=== PATIENT | male | born 1940 | race Caucasian/White ===

== ENCOUNTER → 2018-07-16 13:03 | Outpatient (CLI) | payer MEDICARE, OTHER, SELFPAY ==
--- NOTE | 2018-07-16 | DI.US.S_ITS ---
PROCEDURE: US ABDOMEN COMPLETE INDICATIONS: Unspecified abdominal pain TECHNIQUE: Real-time scanning was performed of the abdominal and retroperitoneal organs, with image documentation. COMPARISON: [facility], CR, XR CHEST 2VW, 12/25/2016, 9:22. [facility], CT, CT CHEST ABD PELVIS WO CON, 12/14/2015, 13:33. [facility], US, ABDOMEN COMPLETE, 10/12/2009, 12:32. FINDINGS: Liver: Liver is mildly heterogeneous and a subtle isoechoic mass within the posterior right hepatic lobe cannot be excluded which measures up to 5.6 cm. Gallbladder: No gallstones identified. Normal gallbladder wall. No pericholecystic fluid. Negative sonographic Ward sign. Biliary ducts: Intrahepatic bile ducts are non-dilated. Extrahepatic bile duct not well-seen. Pancreas: Not well-seen. Spleen: Spleen is normal in size and homogeneous in echotexture. Kidneys: Kidneys are normal in size and echotexture. Right kidney measures 13.1 cm long; left kidney measures 15.2 cm long. No hydronephrosis or nephrolithiasis. No solid masses. Bilateral renal cysts, largest on the right measuring 4.1 cm and 4.8 cm on the left. Aorta: Visualized aorta is normal in caliber at less than 3 cm. Iliacs: Proximal common iliac arteries are normal in caliber at less than 2.5 cm. IVC: Intrahepatic inferior vena cava is patent. Miscellaneous: No free abdominal fluid. IMPRESSION: Mild heterogeneous appearance of the posterior aspect of the right hepatic lobe and isoechoic mass within this region cannot be excluded. Recommend hepatic protocol CT or MRI for further evaluation. Dictated by: Matt Scott [facility] Interpreted: Sravan Morataya MD on 07/16/2018 at 13:46 Approved by: Sravan Morataya M.D. on 07/16/2018 at 14:23
== END ==
PROVIDERS: Visit Provider Student in an Organized Health Care Education/Training Program
DX: R10.9 Unspecified abdominal pain (principal)
CPT/HCPCS: 76700

== ENCOUNTER 2018-07-17 10:24 | Emergency (ER) | payer MEDICARE, OTHER, SELFPAY ==
[2018-07-17] VITALS (7 sets, daily range): BP systolic 85–110; BP diastolic 57–77; PULSE 70–88; RESP 15–20; TEMP 36.3–36.8; O2SAT 96–99
--- NOTE | 2018-07-17 10:43 | ED_ITS ---
HPI - Abdominal Pain General Chief Complaint: Abdominal Pain Stated Complaint: X14 DAYS WEIGHT LOSS NOT EATING Time Seen by Provider: 07/17/18 10:42 Source: patient and family Mode of arrival: ambulatory Limitations: no limitations History of Present Illness HPI narrative: 78-year-old male with a history of lung cancer currently not undergoing chemotherapy because he states it was ?gone ?here for evaluation of approximately 14 days vague abdominal pain and not wanting to eat. He also states that he has lost approximately 20 lb over the past month. He states that he saw the [facility] at his primary care doctor's office who ordered an ultrasound and told him to drink Ensure. He came in today for further evaluation. Related Data Home Medications Medication Instructions Recorded Confirmed tramadol 50 mg PO Q6HP PRN 11/17/17 11/17/17 Previous Rx's Medication Instructions Recorded acetaminophen 650 mg PO Q4HR PRN #60 tab 11/19/17 levalbuterol tartrate [Xopenex HFA] 2 puff INHALATION Q4-6H PRN #15 11/19/17 gram tramadol [Ultram] 50 mg PO Q6H PRN #10 tab 07/17/18 Allergies Allergy/AdvReac Type Severity Reaction Status Date / Time hydrocodone [From VICODIN] Allergy Severe METABOLIC Verified 11/17/17 15:02 ENCEPHALOPATHY Iodinated Contrast- Oral and Allergy Intermediate Verified 11/17/17 15:02 IV Dye [IODINATED CONTRAST MEDIA - IV DYE] aspirin [ASPIRIN] Allergy Mild HIVES Verified 11/17/17 15:02 oxycodone [OXYCODONE] AdvReac Severe METABOLIC Verified 11/17/17 15:02 ENCEPHALOPATHY, COMBATIVE Review of Systems Constitutional Reports fatigue, Denies fever(s), Denies headache(s) and Reports lethargy ENT Ears, Nose, Mouth, and Throat: Denies headache(s) Cardiovascular Denies chest pain and Denies dyspnea Respiratory Denies cough and Denies dyspnea Gastrointestinal Gastrointestinal: Reports abdominal pain, Reports nausea and Denies vomiting Genitourinary Denies dysuria Musculoskeletal Denies myalgias and Denies arthralgias Integumentary/Breasts Denies rash Neurologic Denies behavioral changes and Denies headache(s) Psychiatric Denies behavioral changes Endocrine Reports fatigue Hematologic/Lymphatic Denies easy bleeding and Denies easy bruising PFSH Medical History Lung cancer (Acute) Social History household members: spouse Smoking Status: Current every day smoker Exam Initial Vital Signs Initial Vital Signs: Vital Signs Temperature 97.4 F L 07/17/18 10:25 Pulse Rate 88 07/17/18 10:25 Respiratory Rate 20 07/17/18 10:25 Blood Pressure 95/62 07/17/18 10:25 Pulse Oximetry 96 07/17/18 10:25 Const General: cooperative, comfortable, well developed, well groomed and No acute distress Orientation: alert, awake and oriented x3 HENMT Head: normal to inspection and normocephalic Resp Effort & Inspection: normal respiratory effort Auscultation: clear to auscultation bilaterally Cardio Rate: regular rate Rhythm: regular rhythm Pulses: radial pulses present GI Inspection: non-distended Palpation: soft, No firm, No guarding, No mass, No rigid and tender (Right- sided abdominal tenderness) Back/Spine/Pelvis Back: No CVA tenderness Skin Lesions: no lesions Rashes: no rashes Neuro General: alert, awake and oriented x3 Extrem General: normal to inspection and capillary refill normal Psych Appearance: grossly normal and well kempt Course Orders Ordered: ED Orders 07/17/18 11:13 Urinalysis and Microscopic Stat 07/17/18 11:14 CT abdomen pelvis wo con Stat 07/17/18 11:40 Complete Blood Count AUTO DIFF Stat Comprehensive Metabolic Panel Stat Lactate (Lactic Acid) Stat Lipase Stat Discontinued Medications Sodium Chloride (Normal Saline 0.9%) 1,000 mls @ 1,000 mls/hr IV BOLUS ONE Stop: 07/17/18 12:11 Last Infusion: 07/17/18 13:20 Dose: 0 mls/hr Admin: 07/17/18 11:50 Dose: 1,000 mls/hr Vital Signs - 8 hr 07/17/18 10:25 07/17/18 11:05 07/17/18 12:06 Temperature 97.4 F L Pulse Rate 88 86 78 Respiratory Rate 20 16 Blood Pressure 95/62 Blood Pressure [Left Arm] 85/57 L 85/57 L Pulse Oximetry 96 96 98 07/17/18 13:11 07/17/18 14:00 07/17/18 14:42 Temperature Pulse Rate 77 87 70 Respiratory Rate 15 16 Blood Pressure Blood Pressure [Left Arm] 110/77 106/70 109/72 Pulse Oximetry 99 97 97 MDM - Abdominal Pain Medical Records Attestation: I reviewed the patient's medical records. Lab Data Attestation: I reviewed the patient's lab results. Result diagrams: 07/17/18 11:40 07/17/18 11:40 Lab Results 07/17/18 07/17/18 07/17/18 Range/Units 11:40 11:40 11:40 WBC 8.2 (4.5-11.0) X10^3/uL RBC 4.80 (4.5-5.9) X10^6/uL Hgb 14.9 (13.5-17.5) g/dL Hct 43.4 (41-53) % MCV 90.4 (80-100) fL MCH 31.0 (26-34) PG MCHC 34.3 (30-36) % RDW 13.1 (11.6-14.8) % Plt Count 318 (150-400) X10^3/uL Neut % (Auto) 82.1 H (50-75) % Lymph % (Auto) 7.1 L (25-40) % [place] % (Auto) 9.9 (3-14) % Eos % (Auto) 0.3 L (2-4) % Baso % (Auto) 0.6 (0-2) % Neut # (Auto) 6700 (7524-1285) /uL Sodium 139 (137-145) mmol/L Potassium 4.7 (3.4-5.1) mmol/L Chloride 102 (98-107) mmol/L Carbon Dioxide 28 (22-32) mmol/L BUN 27 H (9-20) mg/dL Creatinine 1.20 (0.66-1.25) mg/dL Estimated GFR 58.7 L (>60) mL/min BUN/Creatinine Ratio 22.5 H (6-22) Glucose 155 H (80-110) mg/dL Lactate 1.6 (0.7-2.1) mmol/L Calcium 10.1 (8.4-10.2) mg/dL Total Bilirubin 0.5 (0.2-1.3) mg/dL AST 54 (17-59) IU/L ALT 43 (21-72) IU/L Alkaline Phosphatase 127 H (38-126) U/L Total Protein 6.7 (6.3-8.2) g/dL Albumin 3.7 (3.5-5.0) g/dL Globulin 3.0 (1.7-4.1) g/dL Albumin/Globulin Ratio 1.2 (1.0-2.8) Lipase 70 (23-300) U/L Imaging Data CT scan - abdomen: Radiologist's impression: PROCEDURE: CT ABDOMEN PELVIS WO CON INDICATIONS: Right-sided abdominal pain TECHNIQUE: After the administration of oral contrast, 5 mm thick sections acquired from the diaphragms to the symphysis. 5 mm coronal and sagittal reformats were performed. For radiation dose reduction, the following was used: automated exposure control, adjustment of mA and/or kV according to patient size. COMPARISON: None. FINDINGS: Image quality: Excellent. ABDOMEN: Lung bases: Lung bases are clear. Heart size is normal. Solid organs: Liver is normal in size but there is a large masslike lesion within the liver above the right kidney, with this mass measuring up to 10.8 cm AP, 10.2 cm transverse and up to approximately 13.4 cm craniocaudad. This mass is contiguous with the upper margin of the right kidney and a mass extending from the kidney into the liver parenchyma may explain this appearance. Gallbladder appears free of inflammation or definite calculus.. Pancreas is normal in size. Spleen is normal in size. No adrenal nodules. Both kidneys are normal in size, without hydronephrosis or nephrolithiasis. There are several simple appearing water density renal cortical cysts. As noted above a mass projecting cephalad and invading the inferior margin of the right hepatic lobe posteriorly may be present originating from the right kidney. A middle third posterior right renal collecting system calculus appears free of obstruction or adjacent inflammation. Peritoneum and bowel: Bowel loops demonstrate normal wall thickness and caliber. No free fluid or air. Nodes and vessels: No retroperitoneal or mesenteric adenopathy by size criteria. Aorta and inferior vena cava are normal in size. Miscellaneous: No ventral hernias. PELVIS: Genitourinary: Bladder wall thickness is normal. Miscellaneous: No inguinal hernias or adenopathy. Bones: No suspicious bony lesions. No vertebral body compression fractures. IMPRESSION: Large masslike lesion involves the right posterior hepatic segment and may emanate from and originate from the upper cortex of the right kidney. Alternatively, a liver mass invading inferiorly into the upper right kidney The current symptomatology. Distant metastatic disease is not seen. Contrast enhanced CT scanning is recommended if possible. Distant metastatic disease is not found. Scattered renal cortical cysts are present all of which appear simple in character and water in density. Incidental is made of a single punctate calcification within the middle third right renal collecting system, measuring only approximately 3 mm in diameter. Dictated by: Sebas Vogel M.D. on 07/17/2018 at 13:48 MDM Narrative Medical decision making narrative: Had a discussion with the patient and his family regarding the findings of the CT scan. Informed him that I have a high suspicion that there is a cancerous mass around his right liver. This would explain all the symptoms that brought him into the emergency department today. He already has a appointment scheduled with his oncologist the middle of next week. I informed him that this would be appropriate. Also informed him to call his oncologist on Thursday morning to let him know of the new findings. He was given a copy of the CD with the pictures. He was given return precautions. He expressed understanding and agreement with plan. Patient stated that he can take Ultram Discharge Plan Departure Patient Disposition: Home Clinical Impression: Liver mass Activity Restrictions/Additional Instructions: The CT scan today is concerning for a mass around your liver. There was some concern of this noted on the ultrasound report from yesterday. I would recommend that you keep your appointment with your oncologist next week. Return to the emergency department for any new or worsening symptoms Prescriptions: New tramadol [Ultram] 50 mg tablet 50 mg PO Q6H PRN (Reason: pain) Qty: 10 RF: 0 No Action tramadol 50 MG tablet 50 mg PO Q6HP PRN (Reason: Pain) RF: 0 acetaminophen 325 mg Tablet 650 mg PO Q4HR PRN (Reason: As Needed For Fever/Mild Pain) Qty: 60 RF: 0 levalbuterol tartrate [Xopenex HFA] 45 mcg/actuation HFA aerosol inhaler 2 puff INHALATION Q4-6H PRN (Reason: shortness of breath) Qty: 15 RF: 0
--- NOTE | 2018-07-17 11:14 | DI.CT.S_ITS ---
PROCEDURE: CT ABDOMEN PELVIS WO CON INDICATIONS: Right-sided abdominal pain TECHNIQUE: After the administration of oral contrast, 5 mm thick sections acquired from the diaphragms to the symphysis. 5 mm coronal and sagittal reformats were performed. For radiation dose reduction, the following was used: automated exposure control, adjustment of mA and/or kV according to patient size. COMPARISON: None. FINDINGS: Image quality: Excellent. ABDOMEN: Lung bases: Lung bases are clear. Heart size is normal. Solid organs: Liver is normal in size but there is a large masslike lesion within the liver above the right kidney, with this mass measuring up to 10.8 cm AP, 10.2 cm transverse and up to approximately 13.4 cm craniocaudad. This mass is contiguous with the upper margin of the right kidney and a mass extending from the kidney into the liver parenchyma may explain this appearance. Gallbladder appears free of inflammation or definite calculus.. Pancreas is normal in size. Spleen is normal in size. No adrenal nodules. Both kidneys are normal in size, without hydronephrosis or nephrolithiasis. There are several simple appearing water density renal cortical cysts. As noted above a mass projecting cephalad and invading the inferior margin of the right hepatic lobe posteriorly may be present originating from the right kidney. A middle third posterior right renal collecting system calculus appears free of obstruction or adjacent inflammation. Peritoneum and bowel: Bowel loops demonstrate normal wall thickness and caliber. No free fluid or air. Nodes and vessels: No retroperitoneal or mesenteric adenopathy by size criteria. Aorta and inferior vena cava are normal in size. Miscellaneous: No ventral hernias. PELVIS: Genitourinary: Bladder wall thickness is normal. Miscellaneous: No inguinal hernias or adenopathy. Bones: No suspicious bony lesions. No vertebral body compression fractures. IMPRESSION: Large masslike lesion involves the right posterior hepatic segment and may emanate from and originate from the upper cortex of the right kidney. Alternatively, a liver mass invading inferiorly into the upper right kidney The current symptomatology. Distant metastatic disease is not seen. Contrast enhanced CT scanning is recommended if possible. Distant metastatic disease is not found. Scattered renal cortical cysts are present all of which appear simple in character and water in density. Incidental is made of a single punctate calcification within the middle third right renal collecting system, measuring only approximately 3 mm in diameter. Dictated by: Sebas Vogel M.D. on 07/17/2018 at 13:48 Approved by: Sebas Vogel M.D. on 07/17/2018 at 13:52
[2018-07-17] MEDS: SODIUM CHLORIDE 0.9% 1,000 ML 1000 ML IV (11:50)
[2018-07-17 11:52] LABS: Add Manual Diff / Slide Review NO; Basophils Percent Auto 0.6 % (0-2); Eosinophils Percent Auto 0.3 % (2-4); Hematocrit 43.4 % (41-53); Hemoglobin 14.9 g/dL (13.5-17.5); Lymphocytes Percent Auto 7.1 % (25-40); Mean Corpuscular HGB Conc 34.3 % (30-36); Mean Corpuscular Volume 90.4 fL (80-100); Monocytes Percent Auto 9.9 % (3-14); Neutrophils Absolute Auto 6700 /uL (1500-7000); Neutrophils Percent Auto 82.1 % (50-75); Platelet Count 318 X10^3/uL (150-400); Red Cell Distribution Width 13.1 % (11.6-14.8); White Blood Cell Count 8.2 X10^3/uL (4.5-11.0)
[2018-07-17 12:05] LABS: Lactate (Lactic Acid) 1.6 mmol/L (0.7-2.1)
[2018-07-17 12:06] LABS: Alanine Aminotransferase 43 IU/L (21-72); Albumin 3.7 g/dL (3.5-5.0); Albumin Globulin Ratio 1.2 (1.0-2.8); Alkaline Phosphatase 127 U/L (38-126); Aspartate Aminotransferase 54 IU/L (17-59); BUN Creatinine Ratio 22.5 (6-22); Bilirubin Total 0.5 mg/dL (0.2-1.3); Blood Urea Nitrogen 27 mg/dL (9-20); Calcium 10.1 mg/dL (8.4-10.2); Carbon Dioxide 28 mmol/L (22-32); Chloride 102 mmol/L (98-107); Estimated Glomerular Filt Rate 58.7 mL/min (>60); Glucose 155 mg/dL (80-110); HEMOLYSIS < 15 (0-50); Lipase 70 U/L (23-300); Potassium 4.7 mmol/L (3.4-5.1); Sodium 139 mmol/L (137-145); Total Protein 6.7 g/dL (6.3-8.2)
== END 2018-07-17 15:00 | disposition home or self-care (01) ==
PROVIDERS: Emergency Provider Emergency Medicine
DX: R16.0 Hepatomegaly, not elsewhere classified (principal)
CPT/HCPCS: 36415; 36591; 74176; 80053; 83605; 83690; 85025; 96360; 96361; 99283; 99284

== ENCOUNTER 2019-09-27 02:15 | Inpatient (IN) | payer MEDICARE, OTHER, SELFPAY ==
[2019-09-27] VITALS (18 sets, daily range): BP systolic 101–184; BP diastolic 56–120; PULSE 79–101; RESP 12–32; TEMP 28.4–37.4; O2SAT 84–97; BMI 28.2
--- NOTE | 2019-09-27 | DI.ECHO.S_ITS ---
[facility]---------+ [facility] +---------+ : : [address] : : : : [id number] : : : : Phone: [phone] Echocardiogram Report + + :Name: ADALGISA CARTER Study Date: 09/27/2019 Height: 191 in : :[facility] Weight: 69 lb : : Gender: Male BSA: 2.7 m2 : :: 1940 Age: 79 yrs BP: 144/84 mmHg: :Reason For Study: CAD, Pulmonary Edema : :Ordering Physician: Michelle : :Hospitalist Performed By: Kalli Graff : :Referring: DORA SAUNDERS : + + Interpretation Summary Left ventricular size is at the upper limits of normal. Left ventricular systolic function is moderately reduced. Left ventricular ejection fraction is estimated to be 35%. There is mild global hypokinesis with more pronounced hypokinesis along the inferolateral wall. Global longitudinal peak systolic strain average is reduced at -11.2%. There is probable grade I LV diasotlic dysfunction. The right ventricle is normal in size, thickness and function. Right ventricular systolic function is mildly reduced. Pulmonary artery pressures cannot be estimated because of the lack of a measurable TR jet velocity but the IVC suggests a CVP of around 3 mmHg. Both atria are normal in size. There is no significant valvular heart disease. The aortic root is normal size. Procedure: A two-dimensional transthoracic echocardiogram with color flow and Doppler was performed. The study quality was technically adequate. Comparison is made with the echocardiogram of 01/08/2016. The patient was in normal sinus rhythm during the exam. Left Ventricle: Left ventricular size is at the upper limits of normal. Left ventricular wall thickness is at the upper limits of normal. Left ventricular systolic function is moderately reduced. Left ventricular ejection fraction is estimated to be 35%. There is mild global hypokinesis with more pronounced hypokinesis along the inferolateral wall. Global longitudinal peak systolic strain average is reduced at -11.2%. Right Ventricle: The right ventricle is normal in size, thickness and function. Right ventricular systolic function is mildly reduced. Atria: Both atria are normal in size. There is no Doppler evidence for an interatrial shunt. Mitral Valve: The mitral valve is normal in structure and function. There is trace mitral regurgitation. Aortic Valve: The aortic valve is trileaflet. The aortic valve opens well. There is mild aortic valve sclerosis. There is no aortic valve stenosis. No aortic regurgitation is present. Tricuspid Valve: The tricuspid valve is not well visualized, but is grossly normal. There is a trace or physiologic amount of tricuspid regurgitation. Pulmonary artery pressures cannot be estimated because of the lack of a measurable TR jet velocity but the IVC suggests a CVP of around 3 mmHg. Pulmonic Valve: The pulmonic valve is not well visualized. There is mild pulmonic regurgitation. There is no significant valvular heart disease. Great Vessels: The aortic root is normal size. The ascending aorta is at the upper limits of normal in size. The IVC is of normal diameter and collapses greater than 50% with a sniff. This suggests a low right atrial pressure of 3 mm Hg. Pericardium/ Pleura There is no pericardial effusion. There is no pleural effusion. MMode/2D Measurements & Calculations LVIDd: 5.7 cm LVOT diam: 2.4 cm LVIDs: 4.7 cm Ao root diam: 3.1 cm FS: 17.0 % asc Aorta Diam: 3.4 cm EPSS: 1.0 cm IVSd: 1.0 cm LVPWd: 1.1 cm LV hendrickson. diameter/BSA (cm/m^2): 2.1 LV sys. diameter/BSA (cm/m^2): 1.7 LA A2 area: 20.5 cm2 RA long axis: 5.6 cm LA A4 area: 13.9 cm2 RA area: 11.6 cm2 LA length (vol): 3.9 cm RA vol: 20.5 ml LA vol: 61.5 ml RA : 7.5 ml/m2 LA vol index: 22.4 ml/m2 IVC diam: 1.0 cm RVD1 (basal): 3.5 cm TAPSE: 1.7 cm Doppler Measurements & Calculations Ao V2 max: 116.8 cm/sec LVOT Max David: 80.9 cm/sec Ao V2 mean: 76.3 cm/sec LV V1 max P.6 mmHg Ao max P.5 mmHg LV V1 VTI: 13.8 cm Ao mean P.7 mmHg ABDELRAHMAN(I,D): 3.4 cm2 Ao V2 VTI: 18.8 cm ABDELRAHMAN(V,D): 3.2 cm2 sev ratio: 0.74 ABDELRAHMAN indexed to BSA (cm^2/m^2): 1.2 MV E max david: 71.3 cm/sec PA V2 max: 86.7 cm/sec MV A max david: 87.1 cm/sec PA V2 mean: 58.2 cm/sec MV E/A: 0.82 PA mean P.6 mmHg Lat Peak E' David: 5.2 cm/sec PA Accel Time: 0.11 sec E/E' lat: 13.7 SV(LVOT): 64.3 ml Reading Physician:08:43 AM
[2019-09-27] MEDS: ALBUTEROL/IPRATROPIUM 3 ML AMPUL INH ×2 (02:28→02:54)
--- NOTE | 2019-09-27 02:29 | ED.SOB ---
HPI - SOB/Dyspnea General Chief Complaint: Shortness of Breath/Dyspnea Stated Complaint: lung cancer/pneumonia 6 weeks/getting worse Time Seen by Provider: 09/27/19 02:19 Source: patient and family () Limitations: no limitations History of Present Illness HPI Narrative: This is a 79-year-old male comes to the emergency department with complaint of shortness of breath. Patient states that he has known lung cancer as well as a liver mass. He is currently receiving therapy every 3 weeks IV. He has had increasing shortness of breath over the last several weeks but states it is worse tonight than typical. He denies any fevers. He has a cough that has been chronic and is nonproductive. Patient does not use inhalers except for Spiriva. He does smoke tobacco daily. Patient states he has little bit of pressure on his chest. He states he has had pneumonia in the past and this feels similar. He has required home O2 in the past but not regularly only post pneumonia. He denies any abdominal pain. He states he has noticed some blood in his urine. No frequency, dysuria urgency. He states he has had normal bowel movements no black or bloody stools. He is on Plavix, he does not take aspirin and states he has hives with aspirin. He also takes medication for hypertension, dyslipidemia. He denies any prior cardiac arrhythmias. He does have a history of a heart attack remotely states no stents. He used to follow with a [employer] intern but no longer does. Dr. Murray is his oncologist. Related Data Home Medications Medication Instructions Recorded Confirmed tramadol 50 mg PO Q6HP PRN 11/17/17 11/17/17 Previous Rx's Medication Instructions Recorded acetaminophen 650 mg PO Q4HR PRN #60 tab 11/19/17 levalbuterol tartrate [Xopenex HFA] 2 puff INHALATION Q4-6H PRN #15 11/19/17 gram tramadol [Ultram] 50 mg PO Q6H PRN #10 tab 07/17/18 Allergies Allergy/AdvReac Type Severity Reaction Status Date / Time hydrocodone [From VICODIN] Allergy Severe METABOLIC Verified 11/17/17 15:02 ENCEPHALOPATHY Iodinated Contrast Media Allergy Intermediate Verified 11/17/17 15:02 [IODINATED CONTRAST MEDIA - IV DYE] aspirin [ASPIRIN] Allergy Mild HIVES Verified 11/17/17 15:02 oxycodone [OXYCODONE] AdvReac Severe METABOLIC Verified 11/17/17 15:02 ENCEPHALOPATHY, COMBATIVE Review of Systems Review of Systems ROS Unobtainable: All systems reviewed & are unremarkable except as noted in HPI and below Patient History Medical History (Updated 09/27/19 @ 03:53 by Poly Steele DO) Lung cancer (Acute) Social History household members: spouse Smoking Status: Current every day smoker Smoking Status: Current every day smoker alcohol intake frequency: 0-2 drinks per day Substance Use Type: does not use Exam Narrative Exam Narrative: GEN: Elderly male, alert and oriented x 3, patient appears to be in moderate distress. Patient appears ashen. Patient was 84% on room air, comes up over 1-2 minutes to 93-95% on O2. HEENT: Atraumatic, pupils are equal round reactive to light, extraocular movements are intact, nares are clear. Throat is clear without any exudates, erythema, tonsillar enlargement or uvular deviation HEART: Regular rate and rhythm without murmur, clicks, rubs. Pulses are equal in upper and lower extremities. No JVD noted. LUNGS:Lungs has mild expiratory wheeze bilaterally, no rales, crackles, chest moves symmetrically, positive for tachypnea. No accessory muscle use. Patient has a wet sound and cough but has been nonproductive in the department. ABD:bowel sounds normal, soft, non-tender, no guarding, rebound, rigidity, no masses noted, no hepatosplenomegaly :No CVA tenderness MSCL: Non-tender, no muscle atrophy, muscles strength 5/5 upper and lower extremities, full range of motion, normal gait NEURO:CN 2-12 intact, sensation normal Initial Vital Signs Initial Vital Signs: Vital Signs Temperature 97.3 F L 09/27/19 02:29 Pulse Rate 100 H 09/27/19 02:29 Respiratory Rate 32 H 09/27/19 02:29 Blood Pressure 184/120 H 09/27/19 02:29 Pulse Oximetry 84 L 09/27/19 02:29 Scores GCS [place] coma scale eye opening: Spontaneous [place] coma scale verbal response: Orientated [place] coma scale motor response: Obey commands Berry coma scale total score: 15 Course Orders Ordered: ED Orders 09/27/19 EC echo doppler complete Routine Urinalysis and Microscopic Routine 09/27/19 02:30 XR chest 1V Stat 09/27/19 02:35 Basic Metabolic Panel Stat Complete Blood Count AUTO DIFF Stat D Dimer Stat Lactate (Lactic Acid) Stat Magnesium Stat NT-proBNP (BNP-Adult 18+) Stat Partial Thromboplastin Time Stat Procalcitonin Stat Prothrombin Time INR Stat Thyroid Stimulating Hormone Routine Troponin & CK Cardiac Panel Stat 09/27/19 02:47 EKG-12 Lead Stat 09/27/19 02:52 Blood Culture Stat 09/27/19 03:58 Arterial Blood Gas Stat 09/27/19 04:05 Respiratory Panel (Film Array) Stat 09/27/19 04:09 Urine Microscopic Stat 09/27/19 04:59 BiPAP Ventilatory Support RT PROTOCOL 09/27/19 05:02 Education, smoking cessation ONGOING 09/27/19 05:04 Consult to Discharge Planning Routine Consult to Respiratory Therapy Evaluate & Treat 09/27/19 10:00 Basic Metabolic Panel Routine Troponin I Routine Albuterol/Ipratropium (Duoneb) 3 ml INH RTQ4HR PRN PRN Reason: Shortness Of Breath Last Admin: 09/27/19 02:54 Dose: 3 ml Documented by: ANDREA Atorvastatin Calcium (Lipitor) 20 mg PO BEDTIME [facility] Bisacodyl (Dulcolax) 10 mg PO DAILY PRN PRN Reason: Constipation Clopidogrel Bisulfate (Plavix) 75 mg PO DAILY [facility] Docusate Sodium (Colace) 100 mg PO BID PRN PRN Reason: Constipation Heparin Sodium (Porcine) (Heparin) 5,000 unit SUBCUT BID [facility] Isosorbide Mononitrate (Imdur) 60 mg PO DAILY [facility] Losartan Potassium (Cozaar) 50 mg PO DAILY [facility] Methylprednisolone (Solu-Medrol 125 Mg Vial) 40 mg IV Q8H [facility] Metoprolol Tartrate (Lopressor) 50 mg PO BID [facility] Naloxone HCl (Narcan) 0.2 mg IV Q2MIN PRN PRN Reason: Opiate Reversal Ondansetron HCl (Zofran) 4 mg IV Q6HR PRN PRN Reason: Nausea Tamsulosin HCl (Flomax) 0.4 mg PO DAILY [facility] Tiotropium [place] (Spiriva) 18 mcg INH RTDAILY [facility] Discontinued Medications Albuterol/Ipratropium (Duoneb) 3 ml INH NOW ONE Stop: 09/27/19 02:27 Last Admin: 09/27/19 02:28 Dose: 3 ml Documented by: ANDREA Furosemide (Lasix) 40 mg PO NOW ONE Stop: 09/27/19 03:16 Last Admin: 09/27/19 03:22 Dose: Not Given Documented by: SHEMAR Furosemide (Lasix) 40 mg IV NOW ONE Stop: 09/27/19 03:20 Last Admin: 09/27/19 03:22 Dose: 40 mg Documented by: SHEMAR Methylprednisolone (Solu-Medrol 125 Mg Vial) 125 mg IV NOW ONE Stop: 09/27/19 02:30 Last Admin: 09/27/19 03:00 Dose: 125 mg Documented by: SHEMAR Vital Signs Vital signs: Vital Signs - 8 hr 09/27/19 02:29 09/27/19 02:31 09/27/19 02:53 Temperature 97.3 F L Pulse Rate 100 H 101 H 95 H Respiratory Rate 32 H 24 25 H Blood Pressure 184/120 H Blood Pressure [Left Arm] 155/97 H Pulse Oximetry 84 L 95 93 09/27/19 02:55 09/27/19 03:58 09/27/19 04:21 Temperature Pulse Rate 93 H 96 H 95 H Respiratory Rate 28 H 31 H 24 Blood Pressure Blood Pressure [Left Arm] 146/86 H 148/94 H Pulse Oximetry 93 90 L 93 MDM - SOB/Dyspnea Lab Data Attestation: I reviewed the patient's lab results. Result diagrams: 09/27/19 02:35 09/27/19 02:35 Labs: Lab Results 09/27/19 09/27/19 09/27/19 Range/Units 02:35 02:35 02:35 WBC 4.8 (4.5-11.0) X10^3/uL RBC 4.64 (4.5-5.9) X10^6/uL Hgb 15.8 (13.5-17.5) g/dL Hct 46.3 (41-53) % MCV 99.7 (80-100) fL MCH 34.1 H (26-34) PG MCHC 34.2 (30-36) % RDW 16.2 H (11.6-14.8) % Plt Count 103 L (150-400) X10^3/uL Neut % (Auto) 87.7 H (50-75) % Lymph % (Auto) 6.6 L (25-40) % [place] % (Auto) 4.3 (3-14) % Eos % (Auto) 0.5 L (2-4) % Baso % (Auto) 0.9 (0-2) % Neut # (Auto) 4200 (6920-6708) /uL Lymph # (Auto) 300 L (0604-3586) /uL [place] # (Auto) 200 (0-900) /uL Eos # (Auto) 0 (0-450) /uL Baso # (Auto) 0 (0-100) /uL PT 13.1 H (10.1-12.7) SECONDS INR 1.1 (0.9-1.3) APTT 37 H (26.4-36.2) SECONDS D-Dimer (<230) ng/mL ABG pH (7.35-7.45) ABG pCO2 (35-45) mmHg ABG pO2 (80-100) mmHg ABG HCO3 (22-26) mmol/L ABG Total CO2 (21-31) mmol/L ABG O2 Saturation (95-100) % ABG Base Excess (-2-2) mmol/L FiO2 Sodium 142 (137-145) mmol/L Potassium 3.9 (3.4-5.1) mmol/L Chloride 108 H (98-107) mmol/L Carbon Dioxide 30 (22-32) mmol/L BUN 21 H (9-20) mg/dL Creatinine 1.62 H (0.66-1.25) mg/dL Estimated GFR 41.4 L (>60) mL/min BUN/Creatinine Ratio 13.0 (6-22) Glucose 118 H (80-110) mg/dL Lactate (0.7-2.1) mmol/L Calcium 9.5 (8.4-10.2) mg/dL Magnesium 2.0 (1.6-2.3) mg/dL Total Creatine Kinase 517 H (55-170) U/L CK-MB (CK-2) 8.35 H (<2.37) ng/mL CK-MB (CK-2) Rel Index 1.6 (1.5-5.0) % Troponin I < 0.012 (0.01-0.034) ng/mL NT-Pro-B Natriuret Pep 2290 H (<450) pg/mL Procalcitonin (<0.5) ng/mL Urine RBC (0-5/HPF) Urine WBC (0-5/HPF) Ur Squamous Epith Cells (0-5/HPF) Urine Bacteria (None) Ur Culture Indicated? 09/27/19 09/27/19 09/27/19 Range/Units 02:35 02:35 02:35 WBC (4.5-11.0) X10^3/uL RBC (4.5-5.9) X10^6/uL Hgb (13.5-17.5) g/dL Hct (41-53) % MCV (80-100) fL MCH (26-34) PG MCHC (30-36) % RDW (11.6-14.8) % Plt Count (150-400) X10^3/uL Neut % (Auto) (50-75) % Lymph % (Auto) (25-40) % [place] % (Auto) (3-14) % Eos % (Auto) (2-4) % Baso % (Auto) (0-2) % Neut # (Auto) (8422-6643) /uL Lymph # (Auto) (2511-9593) /uL [place] # (Auto) (0-900) /uL Eos # (Auto) (0-450) /uL Baso # (Auto) (0-100) /uL PT (10.1-12.7) SECONDS INR (0.9-1.3) APTT (26.4-36.2) SECONDS D-Dimer < 200 (<230) ng/mL ABG pH (7.35-7.45) ABG pCO2 (35-45) mmHg ABG pO2 (80-100) mmHg ABG HCO3 (22-26) mmol/L ABG Total CO2 (21-31) mmol/L ABG O2 Saturation (95-100) % ABG Base Excess (-2-2) mmol/L FiO2 Sodium (137-145) mmol/L Potassium (3.4-5.1) mmol/L Chloride (98-107) mmol/L Carbon Dioxide (22-32) mmol/L BUN (9-20) mg/dL Creatinine (0.66-1.25) mg/dL Estimated GFR (>60) mL/min BUN/Creatinine Ratio (6-22) Glucose (80-110) mg/dL Lactate 0.9 (0.7-2.1) mmol/L Calcium (8.4-10.2) mg/dL Magnesium (1.6-2.3) mg/dL Total Creatine Kinase (55-170) U/L CK-MB (CK-2) (<2.37) ng/mL CK-MB (CK-2) Rel Index (1.5-5.0) % Troponin I (0.01-0.034) ng/mL NT-Pro-B Natriuret Pep (<450) pg/mL Procalcitonin < 0.05 (<0.5) ng/mL Urine RBC (0-5/HPF) Urine WBC (0-5/HPF) Ur Squamous Epith Cells (0-5/HPF) Urine Bacteria (None) Ur Culture Indicated? 09/27/19 09/27/19 Range/Units 03:58 04:09 WBC (4.5-11.0) X10^3/uL RBC (4.5-5.9) X10^6/uL Hgb (13.5-17.5) g/dL Hct (41-53) % MCV (80-100) fL MCH (26-34) PG MCHC (30-36) % RDW (11.6-14.8) % Plt Count (150-400) X10^3/uL Neut % (Auto) (50-75) % Lymph % (Auto) (25-40) % [place] % (Auto) (3-14) % Eos % (Auto) (2-4) % Baso % (Auto) (0-2) % Neut # (Auto) (8084-1878) /uL Lymph # (Auto) (0814-7906) /uL [place] # (Auto) (0-900) /uL Eos # (Auto) (0-450) /uL Baso # (Auto) (0-100) /uL PT (10.1-12.7) SECONDS INR (0.9-1.3) APTT (26.4-36.2) SECONDS D-Dimer (<230) ng/mL ABG pH 7.40 (7.35-7.45) ABG pCO2 41.5 (35-45) mmHg ABG pO2 57 L (80-100) mmHg ABG HCO3 26 (22-26) mmol/L ABG Total CO2 27 (21-31) mmol/L ABG O2 Saturation 89 L (95-100) % ABG Base Excess 1.0 (-2-2) mmol/L FiO2 40 Sodium (137-145) mmol/L Potassium (3.4-5.1) mmol/L Chloride (98-107) mmol/L Carbon Dioxide (22-32) mmol/L BUN (9-20) mg/dL Creatinine (0.66-1.25) mg/dL Estimated GFR (>60) mL/min BUN/Creatinine Ratio (6-22) Glucose (80-110) mg/dL Lactate (0.7-2.1) mmol/L Calcium (8.4-10.2) mg/dL Magnesium (1.6-2.3) mg/dL Total Creatine Kinase (55-170) U/L CK-MB (CK-2) (<2.37) ng/mL CK-MB (CK-2) Rel Index (1.5-5.0) % Troponin I (0.01-0.034) ng/mL NT-Pro-B Natriuret Pep (<450) pg/mL Procalcitonin (<0.5) ng/mL Urine RBC 30-100/hpf H (0-5/HPF) Urine WBC None seen (0-5/HPF) Ur Squamous Epith Cells 0-1 /hpf (0-5/HPF) Urine Bacteria Few (2-10) H (None) Ur Culture Indicated? Cult not indicated Urine Dip Bedside Urine Glucose Negative Bedside Urine Bilirubin - Negative Bedside Urine Ketone - Negative Urine Specific [place] 1.015 Bedside Urine Occult Blood +++ Bedside Urine pH 6.0 Bedside Urine Protein +/- 15 Bedside Urine Urobilinogen - Negative Bedside Urine Nitrite - Negative Bedside Urine Leukocytes - Negative Esterase ABG Data ABG results: PH is 7.398, pCO2 of 41 with a PaO2 of 57 and a bicarb of 25. Patient is on 5 L nasal cannula, shows hypoxia but no pH imbalance. Imaging Data Chest x-ray: Attestation: I personally reviewed and interpreted this imaging study as follows: My Impression: pna vs pulm edema throughout lungs. Appears significantly worse than prior from 2018. ECG Data Attestation: I personally reviewed and interpreted this ECG as follows: Prior ECG tracings: available for review Interpretation: Sinus rhythm with a rate of 96 P are 202 QRS of 153 and QTC of 447. Left axis deviation, right bundle-branch block. Q-wave in V1 and V2. Patient has prior EKG from 11/18/2017 which is not read out as a right bundle branch block but looks fairly similar. No ST elevation appreciated. No depression noted. MDM Narrative Medical decision making narrative: Recheck after 2 neb treatments and patient wheezing has improved patient's O2 is somewhat improved but dips down into the 80s intermittently. He states he feels much better. His pressure is also improved. He states the pressure in his chest as resolved. He states he deals still have some pain when he coughs. He does not feel as short of breath. He has been afebrile in department. His white count is normal, platelets are low. Patient's creatinine is 1.62 BUN is 21 with a chloride of 108 and otherwise normal electrolytes. Initial troponin is negative CK-MB is elevated with a total CK of 500 and a BNP of 2200. Procalcitonin is negative. Patient chest x-ray appears to be more pulmonary edema than pneumonia. And he has not had a productive cough. Given Lasix in the department. Nitro was held as his blood pressures been improving and he is feeling better. Discussed with nurse practitioner Luiz Mullen, who accepts. Plan to for respiratory panel in addition to ABG and dimer as patient is at risk for PE. Patient has been on the edge and terms of his oxygenation and he is willing to do BiPAP. His ABG shows hypoxia with a PaO2 of 57 on 5 L nasal cannula with no CO2 retention with metabolic acidosis and a pH of 7.398 and patient was started on bipap. Ddimer is negative. Patient respiratory panel is pending, patient was seen by [employer] Luiz Mullen in the department. We did discuss goals of care he is open to intubation or CPR but only for a short period of time. states they have been looking into paperwork and she recently filled out some for her . Discharge Plan Departure Patient Disposition: Admitted As Inpatient Clinical Impression: CHF (congestive heart failure), Acute respiratory distress
--- NOTE | 2019-09-27 02:30 | DI.RAD.S_ITS ---
PROCEDURE: XR CHEST 1V INDICATIONS: shortness of breath, known lung cancer, cough, tobacco abuse TECHNIQUE: One view of the chest was acquired. COMPARISON: [facility], CT, CT CHEST ABDOMEN PELVIS WITHOUT CONTRAST, 07/19/2019, 11:54. [facility], CR, CHEST 1 VIEW, 11/14/2017, 9:09. FINDINGS: Surgical changes and devices: None. Lungs and pleura: There is increased pulmonary vascular prominence consistent with pulmonary edema. There are right perihilar medial opacities redemonstrated consistent with radiation pneumonitis as seen on the prior CT. Elevation of the right hemidiaphragm again noted. No pleural effusions or pneumothorax. Mediastinum: Mediastinal contours appear unchanged. Heart size is normal. Bones and chest wall: No displaced fracture identified. No suspicious bony lesions. Overlying soft tissues appear unremarkable. IMPRESSION: 1. Pulmonary edema which may be due to cardiogenic or noncardiogenic etiologies. 2. Medial right perihilar opacities consistent with radiation pneumonitis redemonstrated. Dictated by: Moris Castillo M.D. on 09/27/2019 at 11:02 Approved by: Moris Castillo M.D. on 09/27/2019 at 11:14
[2019-09-27 02:55] LABS: Add Manual Diff / Slide Review NO; Basophils Absolute Auto 0 /uL (0-100); Basophils Percent Auto 0.9 % (0-2); Eosinophils Absolute Auto 0 /uL (0-450); Eosinophils Percent Auto 0.5 % (2-4); Hematocrit 46.3 % (41-53); Hemoglobin 15.8 g/dL (13.5-17.5); Lymphocytes Absolute Auto 300 /uL (1100-4500); Lymphocytes Percent Auto 6.6 % (25-40); Mean Corpuscular HGB Conc 34.2 % (30-36); Mean Corpuscular Hemoglobin 34.1 PG (26-34); Mean Corpuscular Volume 99.7 fL (80-100); Monocytes Absolute Auto 200 /uL (0-900); Monocytes Percent Auto 4.3 % (3-14); Neutrophils Absolute Auto 4200 /uL (1500-7000); Neutrophils Percent Auto 87.7 % (50-75); Red Blood Cell Count 4.64 X10^6/uL (4.5-5.9); Red Cell Distribution Width 16.2 % (11.6-14.8); White Blood Cell Count 4.8 X10^3/uL (4.5-11.0)
[2019-09-27 02:58] LABS: INR 1.1 (0.9-1.3); Prothrombin Time 13.1 SECONDS (10.1-12.7)
[2019-09-27] MEDS: methylPREDNISolone 125 MG/2 ML VIAL IV (03:00)
[2019-09-27 03:01] LABS: Blood Urea Nitrogen 21 mg/dL (9-20); Calcium 9.5 mg/dL (8.4-10.2); Carbon Dioxide 30 mmol/L (22-32); Chloride 108 mmol/L (98-107); Creatine Kinase 517 U/L (55-170); Estimated Glomerular Filt Rate 41.4 mL/min (>60); Glucose 118 mg/dL (80-110); HEMOLYSIS < 15 (0-50); PTT Partial Thromboplastin Tim 37 SECONDS (26.4-36.2); Potassium 3.9 mmol/L (3.4-5.1); Sodium 142 mmol/L (137-145)
[2019-09-27 03:02] LABS: Lactate (Lactic Acid) 0.9 mmol/L (0.7-2.1); Platelet Count 103 X10^3/uL (150-400)
[2019-09-27 03:13] LABS: NT-proBNP (BNP-Adult 18+) 2290 pg/mL (<450); Troponin I < 0.012 ng/mL (0.01-0.034)
[2019-09-27 03:16] LABS: CKMB % Relative Index 1.6 % (1.5-5.0); Creatine Kinase MB 8.35 ng/mL (<2.37); Procalcitonin < 0.05 ng/mL (<0.5)
[2019-09-27] MEDS: FUROSEMIDE 40 MG/4 ML VIAL IV (03:22)
[2019-09-27 04:17] LABS: D Dimer < 200 ng/mL (<230)
[2019-09-27 04:22] LABS: WBC Urine None Seen (0-5/HPF)
[2019-09-27 04:28] LABS: Bacteria Urine Few (2-10); RBC Urine 30-100/HPF (0-5/HPF); Squamous Epithelial Cell Urine 0-1 /HPF (0-5/HPF)
[2019-09-27 04:29] LABS: Culture Indicated Urine Cult Not Indicated
[2019-09-27 04:47] LABS: Fractionated Inspired Oxygen 40; HCO3 ABG 26 mmol/L (22-26); Oxygen Saturation ABG 89 % (95-100); PCO2 ABG 41.5 mmHg (35-45); PO2 ABG 57 mmHg (80-100); TCO2 ABG 27 mmol/L (21-31)
[2019-09-27 05:22] LABS: Adenovirus Not Detected (Not Detect); Bordetella pertussis Not Detected (Not Detect); Chlamydophila pneumoniae Not Detected (Not Detect); Coronavirus 229E Not Detected (Not Detect); Coronavirus HKU1 Not Detected (Not Detect); Coronavirus NL 63 Not Detected (Not Detect); Coronavirus OC43 Not Detected (Not Detect); Human Metapneumovirus Not Detected (Not Detect); Human Rhinovirus/Enterovirus Not Detected (Not Detect); Influenza A Detected (Not Detect); Influenza B Not Detected (Not Detect); Mycoplasma pneumoniae Not Detected (Not Detect); Parainfluenza Virus 1 Not Detected (Not Detect); Parainfluenza Virus 2 Not Detected (Not Detect); Parainfluenza Virus 3 Not Detected (Not Detect); Parainfluenza Virus 4 Not Detected (Not Detect); Respiratory Syncytial Virus Not Detected (Not Detect)
--- NOTE | 2019-09-27 05:24 | P.HP_ITS ---
History of Present Illness History of Present Illness Date Patient Seen: 09/27/19 Time Patient Seen: 05:05 Chief complaint: lung cancer/pneumonia 6 weeks/getting worse Narrative: Mr. Irvin Jarrett is a 71-year-old male patient with a known history of small cell lung cancer (2012) status post chemotherapy and radiation, liver mass (2017) undergoing chemotherapy, CAD, UT (1992, 2015), current smoker with emphysema, duodenal ulcer (2013), hypertension and hyperlipidemia who presents to the ER with his forshortness of breath. The patient has had a chronic cough related to his lung cancer that has worsened over the last 4-6 weeks. The patient is currently undergoing pembrolizumab (keytruda) every 3 weeks with next dose due tomorrow. He follows with his oncologist Dr. Newton who has ordered 2 courses of antibiotics including azithromycin on 08/16/2019 and amoxicillin clavulanate on 09/06/2019 for presumed pneumonia during chemo treatment. the pat ient states he was beginning to feel somewhat better but became markedly worse tonight stating it feels like the pneumonia he had before. the patient's reports decreased appetite and weight gain. The patient continues to smoke 1/2 pack per day. The patient reports no fevers or chills, headaches or dizziness. His describes having cold symptoms. Denies complaints of chest pain and has shortness of breath and cough as above. Reports no complaints abdominal pain, heartburn or nausea. Reports regularly passing formed stools and has noted blood in his urine but none is appreciated in the urine at bedside. Upon arrival to the ER the patient has a blood pressure of 90 7.3, heart rate of 100, blood pressure 184/120, respirations of 32 saturating 84% on room air. Patient had responded well to oxygen therapy with oxygen saturation up to 94% on nasal cannula. Chest x-ray demonstrates elevated right hemidiaphragm with vascular prominence consistent with pulmonary edema. Twelve lead EKG: Sinus rhythm ventricular rate 96, right bundle branch block, left axis shift, septal infarct, no ST or T-wave changes. On laboratory analysis his white count of 4.8, hemoglobin of 15.8 and hematocrit of 46.3 and platelets of 103. On coagulation he has a PT of 13.1, INR 1.1 and PTT 37. On chemistry C has electrolytes normal limits and has a BUN of 21 and creatinine of 1.62. His nonfasting glucose is 118. His magnesium is 2.0. He has lactic acid is 0.9 and a procalcitonin of less than 0.05. He has an elevated total CK at 517 with CK- MB of 8.35 with an index of 1.6. His troponin is less than 0.012 and his proBNP is elevated at 2290. The patient is admitted to the medicine service with acute hypoxic respiratory failure. Patient History Medical History COPD with exacerbation (Inactive) Coronary artery disease (Inactive) Hyperlipidemia (Acute) Hypertension (Acute) Liver mass (Acute) Myocardial infarction (Acute) Small cell lung cancer (Acute) Smoking addiction (Inactive) Surgical History (Updated 09/27/19 @ 06:07 by DIANA Waddell) History of cataract surgery (Acute) History of tonsillectomy (Acute) Family & Social History Family History (Updated 09/27/19 @ 06:09 by DIANA Waddell) Father Heart attack Diabetes mellitus Mother Stroke Sister ALS (amyotrophic lateral sclerosis) Daughter No significant medical problems Social History: household members spouse Safety & Behavioral: Feels Safe in Current Yes Environment Tobacco & Substance use: Smoking Status Current every day smoker alcohol intake frequency 0-2 drinks per day Substance Use Type does not use Comment: Patient lives in a single family home with his . His father from an [place] had diabetes in his mother had multiple strokes. He has 2 sisters 1 of whom from ALS. He has 2 daughters whom he describes as in good health. Smoking: Chronic smoker previously smoking 2-2 and half packs per day down to 1/2 pack per day. Alcohol: Patient denies consuming alcoholic beverages Substance use: Patient denies recreational pharmaceuticals herbal or cannabis products Advanced directives: In direct conversation with the patient at this time he wishes to be FULL CODE but states his desired not to be on long-term life support. He designates his to be his surrogate decision maker. Meds Home Medications and Allergies Home Medications Medication Instructions Recorded Confirmed Type acetaminophen 650 mg PO Q4HR PRN #60 tab 11/19/17 09/27/19 Rx atorvastatin 20 mg PO BEDTIME 09/27/19 09/27/19 History clopidogrel [Plavix] 75 mg PO DAILY 09/27/19 09/27/19 History isosorbide mononitrate 60 mg PO DAILY 09/27/19 09/27/19 History losartan 50 mg PO DAILY 09/27/19 09/27/19 History metoprolol tartrate 50 mg PO BID 09/27/19 09/27/19 History tamsulosin 0.4 mg PO DAILY 09/27/19 09/27/19 History tiotropium bromide [Spiriva with 1 cap INHALATION DAILY 09/27/19 09/27/19 History HandiHaler] Allergies Allergy/AdvReac Type Severity Reaction Status Date / Time hydrocodone [From VICODIN] Allergy Severe METABOLIC Verified 11/17/17 15:02 ENCEPHALOPATHY Iodinated Contrast Media Allergy Intermediate Verified 11/17/17 15:02 [IODINATED CONTRAST MEDIA - IV DYE] aspirin [ASPIRIN] Allergy Mild HIVES Verified 11/17/17 15:02 oxycodone [OXYCODONE] AdvReac Severe METABOLIC Verified 11/17/17 15:02 ENCEPHALOPATHY, COMBATIVE Review of Systems Review of Systems ROS: Yes All systems reviewed with the patient and are negative except as otherwise documented Exam Vital Signs (past 8 hours): - 09/27/19 02:29 09/27/19 02:31 09/27/19 02:53 Temperature 97.3 F L Pulse Rate 100 H 101 H 95 H Respiratory Rate 32 H 24 25 H Blood Pressure 184/120 H Blood Pressure [Left Arm] 155/97 H Pulse Oximetry 84 L 95 93 09/27/19 02:55 09/27/19 03:58 09/27/19 04:21 Temperature Pulse Rate 93 H 96 H 95 H Respiratory Rate 28 H 31 H 24 Blood Pressure Blood Pressure [Left Arm] 146/86 H 148/94 H Pulse Oximetry 93 90 L 93 Oxygen Delivery Method BiPAP Oxygen Flow Rate 5 Narrative Exam Narrative: GENERAL APPEARANCE: well developed, frail appearing, malnourished, laying in bed with head of bed elevated breathing on BiPAP. HEENT: Normocephalic, PERRLA, conjunctiva clear, EOMs intact without nystagmus, no rhinorrhea, mucous membranes are pink NECK/THYROID: neck supple, JVD present, no carotid bruit, no thyromegaly, trachea midline. LYMPH NODES: no cervical or supraclavicular lymphadenopathy. SKIN: [place], warm and dry, no visible lesions, rashes. HEART: regular rate and rhythm, S1-S2, no murmur appreciated, no rubs or gallops, brisk capillary refill, no edema LUNGS: Central coarseness, bibasilar crackles without wheezing, breathing 22-24 breaths minute on BiPAP. CHEST: Symmetrical movement, no accessory muscle use. ABDOMEN: Soft, no distention, no abdominal tenderness, no guarding or peritoneal signs, no organomegaly, no flank or suprapubic tenderness, active bowel tones. BACK: Normal curvature, nontender to palpation, no CVA tenderness on percussion EXTREMITIES: moves all extremities, strength is 5/5 and symmetrical, poor muscle mass NEUROLOGIC: AAO x3, no focal neurologic deficits, sensation intact to light touch, impaired hearing PSYCH: Cooperative, appropriate with stable behavior Objective Labs Result Diagrams: 09/27/19 02:35 09/27/19 02:35 Labs: Laboratory Results - last 24 hr 09/27/19 09/27/19 03 02:35 02:35 02:35 WBC 4.8 RBC 4.64 Hgb 15.8 Hct 46.3 MCV 99.7 MCH 34.1 H MCHC 34.2 RDW 16.2 H Plt Count 103 L Neut % (Auto) 87.7 H Lymph % (Auto) 6.6 L [place] % (Auto) 4.3 Eos % (Auto) 0.5 L Baso % (Auto) 0.9 Neut # (Auto) 4200 Lymph # (Auto) 300 L [place] # (Auto) 200 Eos # (Auto) 0 Baso # (Auto) 0 PT 13.1 H INR 1.1 APTT 37 H D-Dimer ABG pH ABG pCO2 ABG pO2 ABG HCO3 ABG Total CO2 ABG O2 Saturation ABG Base Excess FiO2 Sodium 142 Potassium 3.9 Chloride 108 H Carbon Dioxide 30 BUN 21 H Creatinine 1.62 H Estimated GFR 41.4 L BUN/Creatinine Ratio 13.0 Glucose 118 H Lactate Calcium 9.5 Magnesium 2.0 Total Creatine Kinase 517 H CK-MB (CK-2) 8.35 H CK-MB (CK-2) Rel Index 1.6 Troponin I < 0.012 NT-Pro-B Natriuret Pep 2290 H Procalcitonin Urine RBC Urine WBC Ur Squamous Epith Cells Urine Bacteria Ur Culture Indicated? Chlamy pneumoniae PCR Adenovirus (PCR) B.parapertussis DNA PCR Coronavirus OC43 (PCR) Coronavirus HKU1 (PCR) Coronavirus 229E (PCR) Coronavirus NL63 (PCR) Human Metapneumovir PCR Influenza Type A (PCR) Influenza Type B (PCR) M. pneumoniae (PCR) Parainfluenza 1 (PCR) Parainfluenza 2 (PCR) Parainfluenza 3 (PCR) Parainfluenza 4 (PCR) RSV (PCR) Entero/Rhino (PCR) 09/27/19 09/27/19 09/27/19 02:35 02:35 02:35 WBC RBC Hgb Hct MCV MCH MCHC RDW Plt Count Neut % (Auto) Lymph % (Auto) Tama % (Auto) Eos % (Auto) Baso % (Auto) Neut # (Auto) Lymph # (Auto) [place]ama # (Auto) Eos # (Auto) Baso # (Auto) PT INR APTT D-Dimer < 200 ABG pH ABG pCO2 ABG pO2 ABG HCO3 ABG Total CO2 ABG O2 Saturation ABG Base Excess FiO2 Sodium Potassium Chloride Carbon Dioxide BUN Creatinine Estimated GFR BUN/Creatinine Ratio Glucose Lactate 0.9 Calcium Magnesium Total Creatine Kinase CK-MB (CK-2) CK-MB (CK-2) Rel Index Troponin I NT-Pro-B Natriuret Pep Procalcitonin < 0.05 Urine RBC Urine WBC Ur Squamous Epith Cells Urine Bacteria Ur Culture Indicated? Chlamy pneumoniae PCR Adenovirus (PCR) B.parapertussis DNA PCR Coronavirus OC43 (PCR) Coronavirus HKU1 (PCR) Coronavirus 229E (PCR) Coronavirus NL63 (PCR) Human Metapneumovir PCR Influenza Type A (PCR) Influenza Type B (PCR) M. pneumoniae (PCR) Parainfluenza 1 (PCR) Parainfluenza 2 (PCR) Parainfluenza 3 (PCR) Parainfluenza 4 (PCR) RSV (PCR) Entero/Rhino (PCR) 09/27/19 09/27/19 09/27/19 03:58 04:05 04:09 WBC RBC Hgb Hct MCV MCH MCHC RDW Plt Count Neut % (Auto) Lymph % (Auto) [place] % (Auto) Eos % (Auto) Baso % (Auto) Neut # (Auto) Lymph # (Auto) [place] # (Auto) Eos # (Auto) Baso # (Auto) PT INR APTT D-Dimer ABG pH 7.40 ABG pCO2 41.5 ABG pO2 57 L ABG HCO3 26 ABG Total CO2 27 ABG O2 Saturation 89 L ABG Base Excess 1.0 FiO2 40 Sodium Potassium Chloride Carbon Dioxide BUN Creatinine Estimated GFR BUN/Creatinine Ratio Glucose Lactate Calcium Magnesium Total Creatine Kinase CK-MB (CK-2) CK-MB (CK-2) Rel Index Troponin I NT-Pro-B Natriuret Pep Procalcitonin Urine RBC 30-100/hpf H Urine WBC None seen Ur Squamous Epith Cells 0-1 /hpf Urine Bacteria Few (2-10) H Ur Culture Indicated? Cult not indicated Chlamy pneumoniae PCR Not detected Adenovirus (PCR) Not detected B.parapertussis DNA PCR Not detected Coronavirus OC43 (PCR) Not detected Coronavirus HKU1 (PCR) Not detected Coronavirus 229E (PCR) Not detected Coronavirus NL63 (PCR) Not detected Human Metapneumovir PCR Not detected Influenza Type A (PCR) Detected H Influenza Type B (PCR) Not detected M. pneumoniae (PCR) Not detected Parainfluenza 1 (PCR) Not detected Parainfluenza 2 (PCR) Not detected Parainfluenza 3 (PCR) Not detected Parainfluenza 4 (PCR) Not detected RSV (PCR) Not detected Entero/Rhino (PCR) Not detected Assessment & Plan Assessment & Plan narrative: 1. Acute respiratory failure with hypoxia, meets sepsis criteria, present on admission, active -sofa score is 4 -Patient presents acutely hypoxic upon arrival to the ER with respiratory rate of 34 and SpO2 of 84%. Patient digitally his low platelets of 103 however he is undergoing -chemotherapy. He has elevated creatinine at 1.62, last evaluation record 2018 was 1.2. -Chest x-ray presents parents pulmonary edema, ABG reveals a pH of 7.40, pCO2 41.5, PO2 of 57, bicarb 26 with a base excess of 1. D-dimer is 200. -Patient with multiple contributing etiology including emphysema, lung cancer, and pulmonary edema. Treatment for each is discussed below. -Ordered respiratory PCR panel. 2. Pulmonary edema, new onset without history of heart failure, present on admi ssion, active. -patient has history of coronary artery disease and myocardial infarction in 1992 and 2016. -Patient with progressive shortness of breath for the last month worsening tonight. History and dry nonproductive cough. -Chest x-ray consistent with pulmonary edema, elevated BNP at 2290, troponin is negative at less than 0.012. -Patient received 40 mg of Lasix in the emergency department with subjective improvement in ventilation. -Respiratory to consult and patient started on BiPAP per protocol. -Recheck renal function and reassess the patient prior to continuing Lasix therapy due to chronic kidney disease. -continue patient's home regimen of isosorbide 60 mg daily. -Ordered echocardiogram. 3. Chronic obstructive pulmonary disease, emphysema, present on admission, active -Patient is a chronic smoker smoking 2 to 2-1/2 packs per day continuing to smoke 1/2 pack per day. -In the ER the patient received albuterol and DuoNeb breathing treatments with modest improvement in respiration. -Patient also received methylprednisolone 125 mg IV, ordered methylprednisolone 40 mg every 8 hours. -Respiratory therapy to consult evaluate and treat. -Ordered albuterol treatment every 2 hours as needed. -Ordered DuoNebs every 6 hours as needed. 4. Chronic kidney disease stage 3, possible acute kidney injury on chronic renal disease, present on admission, active -The patient has a creatinine of 1.62 on admission labs. Last available creatinine was 1.2 in June of 2018. Creatinine clearance is calculated at 46.03. - received Lasix 40 mg IV in the emergency department with moderate diuresis. -Will recheck renal function and the necessity for further diuresis prior to ordering additional Lasix. -Will renal dose medications and avoid renal toxic agents.. -Will follow renal function closely. 5. Essential hypertension, chronic, present on admission, active -Patient with elevated blood pressure 184/120 on admission improving to 132/87 following Lasix therapy. -Continue patient's home regimen losartan 50 mg daily and metoprolol tartrate 50 mg twice daily 6. Small cell carcinoma, in remission, stable. -The patient underwent chemotherapy and radiation therapy for small cell carcinoma diagnosed in 2012. -Patient has since developed a liver mass and is undergoing chemotherapy every 3 weeks under the care of Dr. Murray. -Patient's blood counts are stable however white count is 4.8 and likely immunosuppressed. -Patient has received 2 courses of antibiotics including azithromycin started on 08/16/2019 and amoxicillin clavulanate on 09/06/2019 for presumptive pneumonia. -Will obtain respiratory panel. 7. Dyslipidemia, chronic, presumed stable -continue patient's home regimen of atorvastatin 20 mg daily at bedtime VTE prophylaxis: SCDs, heparin. IV fluid: Saline lock Diet: Heart healthy, with ensure The patient is admitted to the hospital due to the severity of his illness and acute respiratory failure with hypoxemia requiring ventilatory support and medication management. Patient is admitted to the ICU on BiPAP. Patient is admitted as an inpatient with expected length of stay to be greater than 2 midnights. CRITICAL CARE TIME: 50 MINUTES Scores [facility] [place] coma scale eye opening: Spontaneous [place] coma scale verbal response: Orientated [place] coma scale motor response: Obey commands [place] coma scale total score: 15 SOFA PaO2/FIO2: < 300 mmHg Platelets: < 150 Bilirubin: < 1.2 mg/dL Hypotension: MAP >= 70 mmHg [place] Coma Scale: 15 Renal: Creatinine 1.2-1.9 mg/dL SOFA Score: 4
--- NOTE | 2019-09-27 06:35 | PC.ADMIT ---
[id number] Admission Note: The patient,Irvin Jarrett,79 y/o, was given written information regarding hospital policies, unit procedures and contact persons. Patient's smoking status: Current every day smoker. Vital Signs - 8 hr 09/27/19 02:29 09/27/19 02:31 09/27/19 02:53 Temperature 97.3 F L Pulse Rate 100 H 101 H 95 H Respiratory Rate 32 H 24 25 H Blood Pressure 184/120 H Blood Pressure [Left Arm] 155/97 H Pulse Oximetry 84 L 95 93 09/27/19 02:55 09/27/19 03:58 09/27/19 04:15 Temperature Pulse Rate 93 H 96 H Respiratory Rate 28 H 31 H Blood Pressure 148/94 H Blood Pressure [Left Arm] 146/86 H Pulse Oximetry 93 90 L 09/27/19 04:21 09/27/19 05:37 09/27/19 06:00 Temperature 98.3 F Pulse Rate 95 H 95 H 92 H Respiratory Rate 24 20 Blood Pressure 132/87 135/83 Blood Pressure [Left Arm] 148/94 H Pulse Oximetry 93 89 L Patient admitted to room 227 at 0535. A/O x4. He is [place], does not have hearing aids with him, most of Admit Assessment answered by , she will bring his aids when she returns. On 5L NC with SpO2 89-92% until RT set up Bi-pap 50% FIO2, 04/24, rate 12, then sats went up to 97%, has mild shortness of breath with exertion, lung sounds rhonchi/wheeze throughout, denies pain. SR, BBB. Placed in Droplet Precautions for influenza A+
[2019-09-27 06:45] LABS: Alanine Aminotransferase 130 IU/L (<50); Albumin 4.4 g/dL (3.5-5.0); Albumin Globulin Ratio 1.5 (1.0-2.8); Alkaline Phosphatase 81 U/L (38-126); Aspartate Aminotransferase 103 IU/L (17-59); Bilirubin Total 0.9 mg/dL (0.2-1.3); Bilirubin Unconjugated 0.7 mg/dL (0.0-1.1); Globulin 2.9 g/dL (1.7-4.1); HEMOLYSIS < 15 (0-50); Total Protein 7.3 g/dL (6.3-8.2)
[2019-09-27] MEDS: TAMSULOSIN 0.4 MG CAPSULE PO (09:10)
[2019-09-27] MEDS: TIOTROPIUM BROMIDE 18 MCG INHALER INH (09:10)
[2019-09-27] MEDS: ISOSORBIDE MONONITRATE ER 60 MG PO (09:10)
[2019-09-27] MEDS: HEPARIN 5,000 UNIT/ML VIAL 5000 UNIT SUBCUT ×2 (09:10→21:31)
[2019-09-27] MEDS: LOSARTAN 50 MG TABLET PO (09:10)
[2019-09-27] MEDS: CLOPIDOGREL 75 MG TABLET PO (09:10)
[2019-09-27] MEDS: METOPROLOL IR 50 MG TABLET PO ×2 (09:10→21:31)
[2019-09-27] MEDS: OSELTAMIVIR 30 MG CAPSULE PO ×2 (09:10→21:31)
[2019-09-27] MEDS: SODIUM CHLORIDE 0.9% FLUSH 10 ML IV ×2 (09:11→23:44)
--- NOTE | 2019-09-27 12:02 | CM.DANOTE ---
DCP: Case received, EMR reviewed and met with patient. Introduced self and role. Was able to briefly meet with patient to obtain some baseline information regarding baseline activity and living situation. DCP assessment completed with information currently available. Patient is a 79 year old male who admitted early this morning to the care of the hospitalist team. Payer: confirmed: Medicare/[facility]. Patient came to the hospital secondary to increased shortness of breath. Patient sees oncologist, Dr. Murray, and has chemo approximately every 3 weeks, for he has diagnosis of lung cancer. Met with patient in his room. He is alert and oriented, confirmed that patient does not have home oxygen, but did so in the past. He also is an every day smoker, and is still driving. He stated that he does not use any DME supplies. Patient resides here in [place] with his spouse, Dante. Patient holds current diagnosis of pneumonia, and influenza A. P: DCP to continue to follow closely. Patient has declined home health in the past, but may be an option. Anticipate, according to Dr. Kirk, that patient will be here for a few days, until he is deemed medically stable. Kirsty Moreland, RISA/[place] Machine Operator Helper
[2019-09-27 12:15] LABS: BUN Creatinine Ratio 12.3 (6-22); Blood Urea Nitrogen 20 mg/dL (9-20); Calcium 9.3 mg/dL (8.4-10.2); Carbon Dioxide 26 mmol/L (22-32); Chloride 104 mmol/L (98-107); Estimated Glomerular Filt Rate 41.1 mL/min (>60); Glucose 270 mg/dL (80-110); HEMOLYSIS < 15 (0-50); Potassium 3.9 mmol/L (3.4-5.1); Sodium 140 mmol/L (137-145)
[2019-09-27 12:26] LABS: Troponin I 0.012 ng/mL (0.01-0.034)
--- NOTE | 2019-09-27 17:39 | PM.EVENT ---
Event Note Date Patient Seen: 09/27/19 Event Note: Patient seen and examined. He remains short of breath foot reports feeling significantly improved. Echocardiogram shows an EF of 30-35%. Patient likely has underlying COPD in addition to pneumonia as well as his lung cancer. Will continue Lasix, start low-dose DEEPAK-inhibitor, and follow-up tomorrow
[2019-09-27] MEDS: ACETAMINOPHEN 325 MG TABLET 650 MG PO (18:22)
[2019-09-27] MEDS: ATORVASTATIN 20 MG TABLET PO (21:31)
--- NOTE | 2019-09-27 23:23 | PC.NURSE ---
Patient only voided 100 for shift. Bladder scan of 200ml postvoid. Luiz, DISABILITY LIAISON OFFICER aware, no new orders. Patient is doing well on 4L O2 NC. Only complaints during shift were of a mild headache which was relieved by Tylenol. Bed alarm on, call light within reach.
[2019-09-28] VITALS (15 sets, daily range): BP systolic 97–117; BP diastolic 63–74; PULSE 67–87; RESP 12–27; TEMP 36.3–37.2; O2SAT 86–97
--- NOTE | 2019-09-28 03:33 | RT ---
0310 pt spo2 suddenly down to 87% on 5lpm nc. pt placed back on bipap with current settings from last night. spo2 up to 92% after about 5 minutes.
--- NOTE | 2019-09-28 05:26 | PC.NURSE ---
On initial assessment patient on 5LNC with Sp02 94% in NAD. 0100 Sp02 87%, oxygen titrated up to 7LNC. Increase of Sp02 up to 93%. 0310 sudden desaturations down to 86% with some circumoral cyanosis noted. RT at bedside, placed back on Bipap with 50% Fi02, 04/24, rate 12. Patient tolerating well with increase of Sp02 to 94% at 5 minutes. Voided 250 mL concentrated urine via urinal.
[2019-09-28 05:40] LABS: Add Manual Diff / Slide Review NO; Basophils Absolute Auto 0 /uL (0-100); Basophils Percent Auto 0.2 % (0-2); Eosinophils Absolute Auto 0 /uL (0-450); Hematocrit 43.1 % (41-53); Hemoglobin 14.8 g/dL (13.5-17.5); Lymphocytes Absolute Auto 400 /uL (1100-4500); Lymphocytes Percent Auto 4.2 % (25-40); Mean Corpuscular HGB Conc 34.3 % (30-36); Mean Corpuscular Hemoglobin 34.7 PG (26-34); Mean Corpuscular Volume 101.1 fL (80-100); Monocytes Absolute Auto 400 /uL (0-900); Monocytes Percent Auto 5.2 % (3-14); Neutrophils Absolute Auto 7800 /uL (1500-7000); Neutrophils Percent Auto 90.4 % (50-75); Platelet Count 99 X10^3/uL (150-400); Red Blood Cell Count 4.27 X10^6/uL (4.5-5.9); Red Cell Distribution Width 16.1 % (11.6-14.8); White Blood Cell Count 8.6 X10^3/uL (4.5-11.0)
[2019-09-28 05:49] LABS: BUN Creatinine Ratio 16.9 (6-22); Blood Urea Nitrogen 32 mg/dL (9-20); Calcium 9.4 mg/dL (8.4-10.2); Carbon Dioxide 28 mmol/L (22-32); Chloride 105 mmol/L (98-107); Estimated Glomerular Filt Rate 34.7 mL/min (>60); Glucose 118 mg/dL (80-110); HEMOLYSIS < 15 (0-50); Potassium 4.5 mmol/L (3.4-5.1); Sodium 140 mmol/L (137-145)
[2019-09-28] MEDS: TIOTROPIUM BROMIDE 18 MCG INHALER INH (09:45)
[2019-09-28] MEDS: HEPARIN 5,000 UNIT/ML VIAL 5000 UNIT SUBCUT ×2 (09:57→20:59)
[2019-09-28] MEDS: FUROSEMIDE 40 MG/4 ML VIAL IV (09:57)
[2019-09-28] MEDS: CLOPIDOGREL 75 MG TABLET PO (10:05)
[2019-09-28] MEDS: LOSARTAN 50 MG TABLET PO (10:05)
[2019-09-28] MEDS: METOPROLOL IR 50 MG TABLET PO ×2 (10:05→20:59)
[2019-09-28] MEDS: TAMSULOSIN 0.4 MG CAPSULE PO (10:05)
[2019-09-28] MEDS: SODIUM CHLORIDE 0.9% FLUSH 10 ML IV ×2 (10:06→21:15)
--- NOTE | 2019-09-28 10:52 | PC.NURSE ---
Am shift Pt trialed on HFNC for meal, O2 @ 6L, tolerated for about 25 minutes. Pt noted to be desatting into mid 80's, work of breathing increased, discussed replacing Bipap, Pt refused but was agreeable after education provided about POC and oxygen needs. Requested medication to help tolerate breathing. Dr Kirk notified, and will be at bedside shortly to discuss POC with Pt.
[2019-09-28] MEDS: OSELTAMIVIR 30 MG CAPSULE PO ×2 (10:58→21:15)
[2019-09-28] MEDS: PIPERACILLIN-TAZO 3.375 GM/50 ML FROZ.PIGGY IV ×2 (13:02→20:59)
[2019-09-28 14:41] LABS: Procalcitonin < 0.05 ng/mL (<0.5)
--- NOTE | 2019-09-28 14:56 | P.PN_ITS ---
Subjective Subjective Date Patient Seen: 09/28/19 Interval history: Patient is a 79-year-old male who was admitted to the hospital for acute respiratory failure. Patient has underlying lung cancer, COPD, and pneumonia. He had an elevated proBNP of 22 90 and an echo which confirmed an ejection fraction of 30-35%. Patient received 1 dose of Lasix and had a small bump in his creatinine. He remained short of breath and hypoxic. He is been placed back on BiPAP for ongoing hypoxemia. Exam Vital Signs (past 8 hours): - 09/28/19 08:00 09/28/19 09:46 09/28/19 12:00 Temperature 97.7 F Pulse Rate 82 84 87 Respiratory Rate 12 19 15 Blood Pressure 98/63 103/65 Pulse Oximetry 95 88 L 92 09/28/19 14:38 Temperature Pulse Rate Respiratory Rate Blood Pressure Pulse Oximetry 92 Fraction of Inspired Oxygen 0.50 Oxygen Delivery Method High Flow Nasal Cannula,BiPAP Oxygen Flow Rate 7 Narrative Exam Narrative: Decreased breath sounds with scattered rhonchi bilaterally Cardiac exam: Regular rate and rhythm normal S1-S2 Abdomen: Soft nontender nondistended Extremities: No edema Objective Labs Result Diagrams: 09/28/19 05:12 09/28/19 05:12 Labs: Laboratory Results - last 24 hr 09/28/19 09/28/19 09/28/19 05:12 05:12 05:12 WBC 8.6 D RBC 4.27 L Hgb 14.8 Hct 43.1 MCV 101.1 H MCH 34.7 H MCHC 34.3 RDW 16.1 H Plt Count 99 L Neut % (Auto) 90.4 H Lymph % (Auto) 4.2 L [place] % (Auto) 5.2 Eos % (Auto) 0.0 L Baso % (Auto) 0.2 Neut # (Auto) 7800 H Lymph # (Auto) 400 L [place] # (Auto) 400 Eos # (Auto) 0 Baso # (Auto) 0 Sodium 140 Potassium 4.5 Chloride 105 Carbon Dioxide 28 BUN 32 H Creatinine 1.89 H Estimated GFR 34.7 L BUN/Creatinine Ratio 16.9 Glucose 118 H D Calcium 9.4 Procalcitonin < 0.05 Assessment & Plan Assessment & Plan narrative: Acute respiratory failure with hypoxia, meets sepsis criteria, present on admission, active -sofa score is 4 -Patient presents acutely hypoxic upon arrival to the ER with respiratory rate of 34 and SpO2 of 84%. Patient digitally his low platelets of 103 however he is undergoing -chemotherapy. He has elevated creatinine at 1.62, last evaluation record 2018 was 1.2. -Chest x-ray presents parents pulmonary edema, ABG reveals a pH of 7.40, pCO2 41.5, PO2 of 57, bicarb 26 with a base excess of 1. D-dimer is 200. -Patient with multiple contributing etiology including emphysema, lung cancer, and pulmonary edema. Treatment for each is discussed below. -patient is influenza positive -patient started on Tamiflu for influenza a -he remains hypoxic and is currently on BiPAP 2. Pulmonary edema, new onset without history of heart failure, present on admission, active. -patient has history of coronary artery disease and myocardial infarction in 1992 and 2015. -Patient with progressive shortness of breath for the last month worsening t onight. History and dry nonproductive cough. -Chest x-ray consistent with pulmonary edema, elevated BNP at 2290, troponin is negative at less than 0.012. -Patient received 40 mg of Lasix in the emergency department with subjective improvement in ventilation. -Respiratory to consult and patient started on BiPAP per protocol. -Recheck renal function and reassess the patient prior to continuing Lasix therapy due to chronic kidney disease. -continue patient's home regimen of isosorbide 60 mg daily. -echocardiogram confirmed ejection fraction of 30 of 35% reflecting acute systolic heart failure -will continue low-salt -will continue Lasix -will follow-up labs tomorrow -hopefully will be able to taper off BiPAP 3. Chronic obstructive pulmonary disease, emphysema, present on admission, active -Patient is a chronic smoker smoking 2 to 2-1/2 packs per day continuing to smoke 1/2 pack per day. -In the ER the patient received albuterol and DuoNeb breathing treatments with modest improvement in respiration. -Patient also received methylprednisolone 125 mg IV, ordered methylprednisolone 40 mg every 8 hours. -Respiratory therapy to consult evaluate and treat. -Ordered albuterol treatment every 2 hours as needed. -Ordered DuoNebs every 6 hours as needed. 4. Chronic kidney disease stage 3, possible acute kidney injury on chronic renal disease, present on admission, active -The patient has a creatinine of 1.62 on admission labs. Last available creatinine was 1.2 in [place] of 2018. Creatinine clearance is calculated at 46.03. - received Lasix 40 mg IV in the emergency department with moderate diuresis. -Will recheck renal function and the necessity for further diuresis prior to ordering additional Lasix. -Will renal dose medications and avoid renal toxic agents.. -Will follow renal function closely. - 5. Essential hypertension, chronic, present on admission, active -Patient with elevated blood pressure 184/120 on admission improving to 132/87 following Lasix therapy. -Continue patient's home regimen losartan 50 mg daily 6. Small cell carcinoma, in remission, stable. -The patient underwent chemotherapy and radiation therapy for small cell carcinoma diagnosed in 2012. -Patient has since developed a liver mass and is undergoing chemotherapy every 3 weeks under the care of Dr. Murray. -Patient's blood counts are stable however white count is 4.8 and likely immunosuppressed. 7. Dyslipidemia, chronic, presumed stable -continue patient's home regimen of atorvastatin 20 mg daily at bedtime Anticipate discharge home when the patient is no longer hypoxic. However given his underlying lung cancer, COPD, and now acute systolic heart failure the patient may require home O2 at discharge.
--- NOTE | 2019-09-28 15:50 | CM.DPC ---
DCP Cont: Per MD and RN during bedside rounding, pt with EF 30-35% and likely underlying COPD with pneumonia and lung cancer. Pt currently on precautions for Flu A and was on bipap and then trialed on heated highflow NC but needed to be put back on Bipap for now. MD anticipates that pt will be able to return home when stable but RT will continue to follow to evaluate for possible new home oxygen at d/c. Plan: SW to follow closely for attempting to wean pt off Bipap and RT to follow for possible new home oxygen needs. SW to follow for possible need for PT orders to eval for safe return home if pt weakens. Maddy Barbosa MSW
[2019-09-28] MEDS: ALBUTEROL/IPRATROPIUM 3 ML AMPUL INH (20:21)
[2019-09-28] MEDS: ATORVASTATIN 20 MG TABLET PO (20:59)
[2019-09-28] MEDS: DOCUSATE 100 MG CAPSULE PO (20:59)
--- NOTE | 2019-09-28 21:43 | PC.NURSE ---
Addendum entered by Christy Champion R.N. 09/28/19 22:21: Pt satting 98% asleep on BiPAP. HR 76. Appears very comfortable. Earlier at 200- pt attempting to get out of bed with IV connected and BiPAP on. Not using call plaza. Reorietned patient, encouraged and instructed correct and safe use of call plaza- verbalized understanding. Original Note: Pt placed on BiPAP for evening at 1745. Satting 91-95% with BiPAP 02/07 increased from 04/24. Pt denies difficulty breathing. 50% FiO2. Denies pain. Repositioned in bed repeatedly for scooching down continuously. Pt continues with tamiflu and IV Abx. Afebrile. Prn NEB given tonight. Pt has sinus congestion per . Hoarse voice and throat result of current CA treatment/medication.
[2019-09-29] VITALS (13 sets, daily range): BP systolic 96–109; BP diastolic 62–69; PULSE 66–76; RESP 12–26; TEMP 36.2–36.4; O2SAT 91–95
[2019-09-29] MEDS: PIPERACILLIN-TAZO 3.375 GM/50 ML FROZ.PIGGY IV ×3 (03:04→19:39)
[2019-09-29] MEDS: ISOSORBIDE MONONITRATE ER 60 MG PO (05:36)
[2019-09-29] MEDS: LEVOTHYROXINE 75 MCG TABLET PO (05:36)
--- NOTE | 2019-09-29 05:50 | PC.NURSE ---
Patient tolerating Bipap overnight at Fi02 50%, rate 02/03. 0545 patient asked for a break and took oral medications. Sp02 90% on 15L HFNC. Refusing to use Bipap further at this time stating I'll just then. DIANA Preciado updated.
[2019-09-29 05:53] LABS: Add Manual Diff / Slide Review NO; Basophils Absolute Auto 0 /uL (0-100); Basophils Percent Auto 0.1 % (0-2); Eosinophils Absolute Auto 0 /uL (0-450); Hematocrit 43.9 % (41-53); Hemoglobin 14.6 g/dL (13.5-17.5); Lymphocytes Absolute Auto 600 /uL (1100-4500); Lymphocytes Percent Auto 6.1 % (25-40); Mean Corpuscular HGB Conc 33.3 % (30-36); Mean Corpuscular Volume 102.2 fL (80-100); Monocytes Absolute Auto 400 /uL (0-900); Monocytes Percent Auto 4.2 % (3-14); Neutrophils Absolute Auto 8100 /uL (1500-7000); Neutrophils Percent Auto 89.6 % (50-75); Platelet Count 86 X10^3/uL (150-400); Red Blood Cell Count 4.29 X10^6/uL (4.5-5.9); Red Cell Distribution Width 16.5 % (11.6-14.8)
[2019-09-29 06:10] LABS: BUN Creatinine Ratio 23.4 (6-22); Blood Urea Nitrogen 52 mg/dL (9-20); Calcium 9.3 mg/dL (8.4-10.2); Carbon Dioxide 31 mmol/L (22-32); Chloride 102 mmol/L (98-107); Estimated Glomerular Filt Rate 28.8 mL/min (>60); Glucose 126 mg/dL (80-110); HEMOLYSIS 17 (0-50); Potassium 4.8 mmol/L (3.4-5.1); Sodium 139 mmol/L (137-145)
[2019-09-29 06:18] LABS: NT-proBNP (BNP-Adult 18+) 3610 pg/mL (<450)
[2019-09-29] MEDS: LOSARTAN 50 MG TABLET PO (08:52)
[2019-09-29] MEDS: TAMSULOSIN 0.4 MG CAPSULE PO (08:52)
[2019-09-29] MEDS: METOPROLOL IR 50 MG TABLET PO ×2 (08:52→19:56)
[2019-09-29] MEDS: OSELTAMIVIR 30 MG CAPSULE PO ×2 (08:52→19:56)
[2019-09-29] MEDS: CLOPIDOGREL 75 MG TABLET PO (08:52)
[2019-09-29] MEDS: HEPARIN 5,000 UNIT/ML VIAL 5000 UNIT SUBCUT ×2 (08:53→19:56)
[2019-09-29] MEDS: SODIUM CHLORIDE 0.9% FLUSH 10 ML IV ×2 (08:53→19:57)
[2019-09-29] MEDS: TIOTROPIUM BROMIDE 18 MCG INHALER INH (09:32)
--- NOTE | 2019-09-29 15:33 | P.PN_ITS ---
Subjective Subjective Date Patient Seen: 09/29/19 Time Patient Seen: 15:34 Interval history: Mr. Irvin Jarrett is a 71-year-old male patient with a known history of small cell lung cancer (2012) status post chemotherapy and radiation, liver mass (2017) undergoing chemotherapy, CAD, [place] (1992, 2015), current smoker with emphysema, duodenal ulcer (2013), hypertension and hyperlipidemia who presented to the ER with shortness of breath. He had an elevated proBNP of 22 90 and an echo which confirmed an ejection fraction of 30-35%. He was also found to be influenza A positive. Patient received 1 dose of Lasix and had a small bump in his creatinine. He remained short of breath and hypoxic. He was placed back on BiPAP yesterday, however overnight the patient refused due to discomfort. He remained on quite high amounts of oxygen today, and is currently at 10 liters/minute, but saturating at 94%. He states that he does feel somewhat improved today, but still feels short of breath. Exam Vital Signs (past 8 hours): - 09/29/19 07:45 09/29/19 09:40 09/29/19 11:00 Temperature 97.5 F L 97.4 F L Pulse Rate 74 74 72 Respiratory Rate 26 H 20 21 Blood Pressure 102/65 104/62 Pulse Oximetry 93 91 94 Fraction of Inspired Oxygen 50 Oxygen Delivery Method High Flow Nasal Cannula Oxygen Flow Rate 10 Narrative Exam Narrative: GENERAL APPEARANCE: well developed, frail appearing, malnourished, but no acute distress on nasal cannula. HEENT: Normocephalic, PERRLA, conjunctiva clear, EOMs intact without nystagmus, no rhinorrhea, mucous membranes are pink NECK/THYROID: neck supple, JVD present, no carotid bruit, no thyromegaly, trachea midline. LYMPH NODES: no cervical or supraclavicular lymphadenopathy. SKIN: [place], warm and dry, no visible lesions, rashes. HEART: regular rate and rhythm, S1-S2, no murmur appreciated, no rubs or gallops, brisk capillary refill, no edema LUNGS: Mild bibasilar rhonchi, without wheezing. CHEST: Symmetrical movement, no accessory muscle use. ABDOMEN: Soft, no distention, no abdominal tenderness, no guarding or peritoneal signs, no organomegaly, no flank or suprapubic tenderness, active bowel tones. BACK: Normal curvature, nontender to palpation. EXTREMITIES: moves all extremities, strength is 5/5 and symmetrica. NEUROLOGIC: AAO x3, no focal neurologic deficits, sensation intact to light touch, impaired hearing PSYCH: Cooperative, appropriate with stable behavior Objective Labs Result Diagrams: 09/29/19 05:25 09/29/19 05:25 Labs: Laboratory Results - last 24 hr 09/29/19 09/29/19 05:25 05:25 WBC 9.0 RBC 4.29 L Hgb 14.6 Hct 43.9 MCV 102.2 H MCH 34.0 MCHC 33.3 RDW 16.5 H Plt Count 86 L Neut % (Auto) 89.6 H Lymph % (Auto) 6.1 L [place] % (Auto) 4.2 Eos % (Auto) 0.0 L Baso % (Auto) 0.1 Neut # (Auto) 8100 H Lymph # (Auto) 600 L [place] # (Auto) 400 Eos # (Auto) 0 Baso # (Auto) 0 Sodium 139 Potassium 4.8 Chloride 102 Carbon Dioxide 31 BUN 52 H Creatinine 2.22 H Estimated GFR 28.8 L BUN/Creatinine Ratio 23.4 H Glucose 126 H Calcium 9.3 NT-Pro-B Natriuret Pep 3610 H Assessment & Plan Assessment & Plan narrative: 1. Sepsis secondary to influenza A, present on admission, active -sofa score was 4 on admission, patient with evidence of end-organ damage including TYLER, respiratory failure, thrombocytopenia. -Patient presents acutely hypoxic upon arrival to the ER with respiratory rate of 34 and SpO2 of 84%. Thrombocytopenic likely secondary to influenza. He has elevated creatinine at 1.62 which has been increasing, last evaluation record 2018 was 1.2. -patient is influenza positive -patient started on Tamiflu for influenza a -he remains hypoxic and is currently on BiPAP -patient is also on Zosyn to cover for superimposed bacterial infection, will continue this for now.. 2. Acute hypoxemic respiratory failure -likely secondary to influenza a, along with pulmonary edema secondary to acute systolic heart failure, possible superimposed bacterial pneumonia, COPD exacerbation. 3. Pulmonary edema, new onset without history of heart failure, present on admission, active. -patient has history of coronary artery disease and myocardial infarction in 1992 and 2016. -Patient with progressive shortness of breath for the last month worsening tonight. History and dry nonproductive cough. -Chest x-ray consistent with pulmonary edema, elevated BNP at 2290, troponin is negative at less than 0.012. -Patient received 40 mg of Lasix in the emergency department with subjective improvement in ventilation. -Respiratory to consult and patient started on BiPAP per protocol, now patient currently refusing, but tolerating nasal cannula. -creatinine is still rising, no further Lasix has been given. -continue patient's home regimen of isosorbide 60 mg daily. -echocardiogram confirmed ejection fraction of 30 of 35% reflecting acute systolic heart failure -will continue low-salt 4. Chronic obstructive pulmonary disease, emphysema, present on admission, active -Patient is a chronic smoker smoking 2 to 2-1/2 packs per day continuing to smoke 1/2 pack per day. -In the ER the patient received albuterol and DuoNeb breathing treatments with modest improvement in respiration. -Patient also received methylprednisolone 125 mg IV, ordered methylprednisolone 40 mg every 8 hours. -Respiratory therapy to consult evaluate and treat. -continue albuterol and DuoNebs. 5. Chronic kidney disease stage 3, possible acute kidney injury on chronic renal disease, present on admission, active -The patient has a creatinine of 1.62 on admission labs. Last available creatinine was 1.2 in June of 2018. Creatinine clearance is calculated at 46.03. - received Lasix 40 mg IV in the emergency department with moderate diuresis. -Will recheck renal function and the necessity for further diuresis prior to ordering additional Lasix. -Will renal dose medications and avoid renal toxic agents.. -Will follow renal function closely. 6. Essential hypertension, chronic, present on admission, active -Patient with elevated blood pressure 184/120 on admission improving to 132/87 following Lasix therapy. -Continue patient's home regimen losartan 50 mg daily, metoprolol 7. Small cell carcinoma, in remission, stable. -The patient underwent chemotherapy and radiation therapy for small cell carcinoma diagnosed in 2012. -Patient has since developed a liver mass and is undergoing chemotherapy every 3 weeks under the care of Dr. Murray. -Patient's blood counts are stable however white count is 4.8 and likely immunosuppressed. 8. Dyslipidemia, chronic, presumed stable -continue patient's home regimen of atorvastatin 20 mg daily at bedtime 9. Acute systolic heart failure -diuresis as noted above, -patient is currently on an Arb as well as a beta-olivia. Anticipate discharge home when the patient is no longer hypoxic. However given his underlying lung cancer, COPD, and now acute systolic heart failure the patient may require home O2 at discharge.
[2019-09-29] MEDS: ALBUTEROL/IPRATROPIUM 3 ML AMPUL INH (19:53)
[2019-09-29] MEDS: ATORVASTATIN 20 MG TABLET PO (19:55)
[2019-09-29] MEDS: DOCUSATE 100 MG CAPSULE PO (19:55)
--- NOTE | 2019-09-29 21:02 | PC.NURSE ---
Addendum entered by Christy Champion R.N. 09/29/19 21:18: Increased FiO2 from 50% to 60% for sats of 89% on BiPAP. Current settings now 02/03 Rate 12 FiO2 60% Original Note: Pt placed back on BiPAP at 2044 by RT. Sats were 86% on heated high flow while sleeping. Sats 90% currently. Leak heard by RN, readjusting mask currently. Pt loudly stating that we are making him wear this mask and he knew it would be awful. Reiterated to patient that he may refuse bipap at any time. He stated he hates it. Confirmed with patient that staff would not argue with him or force him to wear the Bipap, that is was an agreed upon plan with his , himself and evening shift RN to wear if his sats decreased. Given option again to remove. He declined and agreed to wear the mask now. Pt continues to be in bigeminy, HR 71. Team aware.
[2019-09-30] VITALS (14 sets, daily range): BP systolic 101–125; BP diastolic 68–82; PULSE 70–78; RESP 18–23; TEMP 36.2–37; O2SAT 90–97
--- NOTE | 2019-09-30 01:38 | PC.NURSE ---
Addendum entered by Leydi Murphy R.N. 09/30/19 06:49: Patient attempted to void via urinal; unsuccessful. Bladder scan for 378mL. Dr. Kirk notified, order to straight cath. Addendum entered by Leydi Murphy R.N. 09/30/19 04:02: Sp02 96% on 15LHFNC. Titrated down to 12L - patient denies SOB. RR 22. Original Note: Patient declining use of Bipap at this time stating that yesterday they told me I don't need this anymore Educated on current need based on oxygenation status. Continues to decline. Placed on HFNC at 13L, Sp02 90%. Flow increased to 15L with Sp02 92%.
[2019-09-30] MEDS: PIPERACILLIN-TAZO 3.375 GM/50 ML FROZ.PIGGY IV ×3 (03:49→20:37)
[2019-09-30] MEDS: ISOSORBIDE MONONITRATE ER 60 MG PO (06:18)
[2019-09-30] MEDS: LEVOTHYROXINE 75 MCG TABLET PO (06:18)
[2019-09-30 08:39] LABS: Add Manual Diff / Slide Review NO; Basophils Absolute Auto 0 /uL (0-100); Eosinophils Absolute Auto 0 /uL (0-450); Hematocrit 44.3 % (41-53); Hemoglobin 14.7 g/dL (13.5-17.5); Lymphocytes Absolute Auto 500 /uL (1100-4500); Lymphocytes Percent Auto 5.6 % (25-40); Mean Corpuscular HGB Conc 33.1 % (30-36); Mean Corpuscular Hemoglobin 33.9 PG (26-34); Mean Corpuscular Volume 102.4 fL (80-100); Monocytes Absolute Auto 300 /uL (0-900); Monocytes Percent Auto 3.8 % (3-14); Neutrophils Absolute Auto 7400 /uL (1500-7000); Neutrophils Percent Auto 90.6 % (50-75); Platelet Count 82 X10^3/uL (150-400); Red Blood Cell Count 4.32 X10^6/uL (4.5-5.9); Red Cell Distribution Width 16.6 % (11.6-14.8); White Blood Cell Count 8.1 X10^3/uL (4.5-11.0)
[2019-09-30 08:51] LABS: Alanine Aminotransferase 209 IU/L (<50); Albumin 3.8 g/dL (3.5-5.0); Albumin Globulin Ratio 1.4 (1.0-2.8); Alkaline Phosphatase 72 U/L (38-126); Aspartate Aminotransferase 246 IU/L (17-59); BUN Creatinine Ratio 25.2 (6-22); Bilirubin Total 0.5 mg/dL (0.2-1.3); Bilirubin Unconjugated 0.3 mg/dL (0.0-1.1); Blood Urea Nitrogen 53 mg/dL (9-20); Calcium 9.1 mg/dL (8.4-10.2); Carbon Dioxide 34 mmol/L (22-32); Chloride 101 mmol/L (98-107); Estimated Glomerular Filt Rate 30.7 mL/min (>60); Globulin 2.8 g/dL (1.7-4.1); Glucose 108 mg/dL (80-110); HEMOLYSIS < 15 (0-50); Magnesium 2.2 mg/dL (1.6-2.3); Potassium 4.9 mmol/L (3.4-5.1); Sodium 140 mmol/L (137-145); Total Protein 6.6 g/dL (6.3-8.2)
[2019-09-30] MEDS: TIOTROPIUM BROMIDE 18 MCG INHALER INH (09:00)
[2019-09-30] MEDS: HEPARIN 5,000 UNIT/ML VIAL 5000 UNIT SUBCUT ×2 (09:41→20:37)
[2019-09-30] MEDS: TAMSULOSIN 0.4 MG CAPSULE PO (09:41)
[2019-09-30] MEDS: CLOPIDOGREL 75 MG TABLET PO (09:41)
[2019-09-30] MEDS: FUROSEMIDE 40 MG TABLET PO (09:41)
[2019-09-30] MEDS: SODIUM CHLORIDE 0.9% FLUSH 10 ML IV ×2 (09:42→20:38)
[2019-09-30] MEDS: OSELTAMIVIR 30 MG CAPSULE PO ×2 (09:47→20:38)
--- NOTE | 2019-09-30 10:10 | PC.NURSE ---
Addendum entered by Vivek Jain R.N. 09/30/19 13:02: Escorted pt to CT after premedication for reported iodine allergy. Pt was able to transfer with SBA to / and was placed on transport monitor as well as 8L high flow nasal cannula. Pt tolerated CT well and was escorted back to on monitor. HR 76 SR BBB PVCs BP 125/80 RR 20 SPO2 96%. Pt denies any s/s of adverse reaction. Will monitor. Original Note: Reviewed lab results, VS, and pt allergies. Requested clarification of orders for CT Angio with contrast. Dr. Durán instructs to hold metoprolol and losartan given BP and frequent bigeminal PVCs. Dr. Durán acknowledges contrast allergy and states he will order premedication protocol. Awaiting orders.
--- NOTE | 2019-09-30 11:25 | PM.PN.1 ---
Subjective Subjective Date Patient Seen: 09/30/19 Time Patient Seen: 11:25 Interval history: Mr. Irvin Jarrett is a 71-year-old male patient with a known history of small cell lung cancer (2012) status post chemotherapy and radiation, liver mass (2017) undergoing chemotherapy, CAD, [place] (1992, 2015), current smoker with emphysema, duodenal ulcer (2013), hypertension and hyperlipidemia who presented to the ER with shortness of breath. He had an elevated proBNP of 22 90 and an echo which confirmed an ejection fraction of 30-35%. He was also found to be influenza A positive. Patient received 1 dose of Lasix and had a small bump in his creatinine. He remained short of breath and hypoxic. His blood pressures have remained low. He has also been in bigeminy on telemetry intermittently. His blood pressure remains low normal and his blood pressure medications were held this morning. He has remained on quite a bit of supplemental oxygen but is slightly improved to 8L. Given persistent hypoxia, will rule out PE with CT PE protocol today, given reported iodine allergy patient will be given benadryl 1 hour prior as he has been on methylprednisolone since admission. He continues to feel improved, only complaining of mild shortness of breath but he has not been walking as of this time. Exam Vital Signs (past 8 hours): - 09/30/19 04:00 09/30/19 04:12 09/30/19 04:20 Temperature 97.5 F L Pulse Rate 75 Respiratory Rate 23 Blood Pressure 105/70 Pulse Oximetry 95 97 92 09/30/19 06:23 09/30/19 06:38 09/30/19 07:07 Temperature Pulse Rate Respiratory Rate Blood Pressure Pulse Oximetry 94 91 90 L 09/30/19 08:00 09/30/19 08:15 09/30/19 09:00 Temperature 97.3 F L Pulse Rate 78 72 Respiratory Rate 18 20 Blood Pressure 103/72 Pulse Oximetry 91 90 L 92 Fraction of Inspired Oxygen 0.6 Oxygen Delivery Method High Flow Nasal Cannula Oxygen Flow Rate 8 Narrative Exam Narrative: GENERAL APPEARANCE: well developed, frail appearing, malnourished, but no acute distress on nasal cannula. HEENT: Normocephalic, PERRLA, conjunctiva clear, EOMs intact without nystagmus, no rhinorrhea, mucous membranes are pink NECK/THYROID: neck supple, JVD present, no carotid bruit, no thyromegaly, trachea midline. LYMPH NODES: no cervical or supraclavicular lymphadenopathy. SKIN: [place], warm and dry, no visible lesions, rashes. HEART: regular rate and rhythm, S1-S2, no murmur appreciated, no rubs or gallops, brisk capillary refill, no edema LUNGS: Mild bibasilar rhonchi, without wheezing. CHEST: Symmetrical movement, no accessory muscle use. ABDOMEN: Soft, no distention, no abdominal tenderness, no guarding or peritoneal signs, no organomegaly, no flank or suprapubic tenderness, active bowel tones. BACK: Normal curvature, nontender to palpation. EXTREMITIES: moves all extremities, strength is 5/5 and symmetrica. NEUROLOGIC: AAO x3, no focal neurologic deficits, sensation intact to light touch PSYCH: Cooperative, appropriate with stable behavior Objective Labs Result Diagrams: 09/30/19 08:10 09/30/19 08:10 Labs: Laboratory Results - last 24 hr 09/30/19 09/30/19 08:10 08:10 WBC 8.1 RBC 4.32 L Hgb 14.7 Hct 44.3 MCV 102.4 H MCH 33.9 MCHC 33.1 RDW 16.6 H Plt Count 82 L Neut % (Auto) 90.6 H Lymph % (Auto) 5.6 L Frontier % (Auto) 3.8 Eos % (Auto) 0.0 L Baso % (Auto) 0.0 Neut # (Auto) 7400 H Lymph # (Auto) 500 L Frontier # (Auto) 300 Eos # (Auto) 0 Baso # (Auto) 0 Sodium 140 Potassium 4.9 Chloride 101 Carbon Dioxide 34 H BUN 53 H Creatinine 2.10 H Estimated GFR 30.7 L BUN/Creatinine Ratio 25.2 H Glucose 108 Calcium 9.1 Magnesium 2.2 Total Bilirubin 0.5 Conjugated Bilirubin 0.0 Unconjugated Bilirubin 0.3 AST 246 H ALT 209 H Alkaline Phosphatase 72 Total Protein 6.6 Albumin 3.8 Globulin 2.8 Albumin/Globulin Ratio 1.4 Assessment & Plan Assessment & Plan narrative: 1. Sepsis secondary to influenza A, present on admission, active -sofa score was 4 on admission, patient with evidence of end-organ damage including TYLER, respiratory failure, thrombocytopenia. -Patient presented hypoxic upon arrival to the ER with respiratory rate of 34 and SpO2 of 84%. Thrombocytopenic likely secondary to influenza. He had elevated creatinine at 1.62 which has been increasing, last evaluation record 2018 was 1.2. -patient is influenza A positive -patient started on Tamiflu for influenza A -he remains hypoxic but slightly improving on 8L today. -patient is also on Zosyn to cover for superimposed bacterial infection, will continue this for now. 2. Acute hypoxemic respiratory failure -likely secondary to influenza a, along with pulmonary edema secondary to acute systolic heart failure, possible superimposed bacterial pneumonia, COPD exacerbation. -given persistence at this time, will rule out PE and also obtain further clinical imaging with CT chest PE protocol. 3. Pulmonary edema, new onset without history of heart failure, present on admission, active. -patient has history of coronary artery disease and myocardial infarction in 1992 and 2015. -Patient with progressive shortness of breath for the last month worsening tonight. History and dry nonproductive cough. -Chest x-ray consistent with pulmonary edema, elevated BNP at 2290, troponin is negative at less than 0.012. -Patient received 40 mg of Lasix in the emergency department with subjective improvement in ventilation. After lasix his Cr bumped and has not been continued. He does not appear clinically overloaded. -Respiratory to consult and patient started on BiPAP per protocol, now patient currently refusing, but tolerating nasal cannula. -creatinine peaked at 2.20 now slightly improved today. -continue patient's home regimen of isosorbide 60 mg daily. -echocardiogram confirmed ejection fraction of 30 of 35% reflecting acute systolic heart failure -will continue low-salt diet 4. Chronic obstructive pulmonary disease, emphysema, present on admission, active -Patient is a chronic smoker smoking 2 to 2-1/2 packs per day continuing to smoke 1/2 pack per day. -In the ER the patient received albuterol and DuoNeb breathing treatments with modest improvement in respiration. -Patient also received methylprednisolone 125 mg IV, continue methylprednisolone 40 mg every 8 hours. -Respiratory therapy to consult evaluate and treat. -continue albuterol and DuoNebs. 5. Chronic kidney disease stage 3, possible acute kidney injury on chronic renal disease, present on admission, active -creatinine of 1.62 on admission labs. Last available creatinine was 1.2 in June of 2018. Peaked yesterday to 2.2 and improved slightly to 2.1 today. - received Lasix 40 mg IV in the emergency department with moderate diuresis. -Will recheck renal function and the necessity for further diuresis, does not clinically appear to need lasix today. Lasix 40 mg PO to continue to try and maintain euvolemia. -Will renal dose medications and avoid renal toxic agents.. -Will follow renal function closely. 6. Essential hypertension, chronic, present on admission, active -Patient with elevated blood pressure 184/120 on admission -held home BP medications this AM (metoprolol and losartan) for low BP will discontinue going forward. 7. Small cell carcinoma, in remission, stable. -The patient underwent chemotherapy and radiation therapy for small cell carcinoma diagnosed in 2012. -Patient has since developed a liver mass and is undergoing chemotherapy every 3 weeks under the care of Dr. Murray. 8. Dyslipidemia, chronic, presumed stable -continue patient's home regimen of atorvastatin 20 mg daily at bedtime 9. Acute systolic heart failure -diuresis as noted above, -patient is currently on an Arb as well as a beta-olivia, which will be resumed when his blood pressure is able to tolerate these medications. Anticipate discharge home when the patient is no longer hypoxic. However given his underlying lung cancer, COPD, and now acute systolic heart failure the patient may require home O2 at discharge.
[2019-09-30] MEDS: diphenhydrAMINE 25 MG TABLET 50 MG PO (11:35)
--- NOTE | 2019-09-30 12:05 | DI.CT.S_ITS ---
PROCEDURE: CT ANGIO CHEST PE PROTOCOL INDICATIONS: persistent hypoxia, TECHNIQUE: After the administration of intravenous contrast, 2 mm thick sections acquired from the pulmonary apices to the posterior costophrenic angles. 3-dimensional maximum intensity projection (MIP) coronal and sagittal reformats were then acquired through the thorax. For radiation dose reduction, the following was used: automated exposure control, adjustment of mA and/or kV according to patient size. COMPARISON: [facility], MR, MR ABDOMEN WITH/WITHOUT CONTRAST, 10/22/2018, 8:34. [facility], CT, CT CHEST ABDOMEN PELVIS WITHOUT CONTRAST, 04/11/2019, 17:10. [facility], CT, CT CHEST ABDOMEN PELVIS WITHOUT CONTRAST, 07/19/2019, 11:54. FINDINGS: Image quality: Excellent. Pulmonary arteries: Pulmonary arteries are normal in size, and demonstrate no intraluminal filling defects to suggest central pulmonary embolism. Lungs and pleura: Emphysematous changes are present. There has been interval development of increased vascularity and coarsened appearance of the interstitium within both the upper and lower lobes bilaterally. There is a persistent area of thickening along the medial aspect of the right upper lobe, unchanged. No pneumothorax. Central and peripheral airways are patent. Mediastinum: Heart size is enlarged, without pericardial effusion. No mediastinal or hilar adenopathy. Thoracic aorta is normal in caliber and enhancement. Esophagus is normal in caliber, with small hiatal hernia. Bones and chest wall: No suspicious bony lesions. Ribs and thoracic spine appear intact throughout. Thyroid gland is unremarkable. No axillary or supraclavicular adenopathy. Abdomen: Partially visualized left renal cyst is noted. Partially visualized hepatic mass. Otherwise, visualized upper abdominal solid organs appear normal in the early arterial phase of enhancement. IMPRESSION: 1. There is an overall appearance of increased pulmonary vascularity. Areas of coarsened interstitial opacity are more prominent in the left upper lobe and bases when compared to prior exam. But much of this is likely related to increased vascularity. Developing areas of airspace disease such as pneumonia cannot be excluded. 2. No pulmonary embolism. Dictated by: Josephine Stahl M.D. on 09/30/2019 at 13:01 Approved by: Josephine Stahl M.D. on 09/30/2019 at 13:22
[2019-09-30 12:37] LABS: Free T4, Direct Thyroxine 0.16 ng/dL (0.78-2.19)
--- NOTE | 2019-09-30 15:34 | CM.DPC ---
DCP: continued: case discussed in Bedside Team Rounds. Droplet Precautions: + influenza A so Dr. Durán discussed POC with team outside room. Pt continues on high levels of o2 and CTA for today was planned. Dr. Durán stated that he expected pt to be here several days until stable enough for d/c. He states pt may need o2 at d/c. DCP team to continue to follow. Pt does have Medicare and [employer] Insurance. INPT admission status: since 09/26. Is well positioned for various d/c options that may be needed.
[2019-09-30] MEDS: ATORVASTATIN 20 MG TABLET PO (20:37)
[2019-10-01] VITALS (10 sets, daily range): BP systolic 111–129; BP diastolic 77–90; PULSE 74–85; RESP 16–29; TEMP 36.7–37.2; O2SAT 90–93
[2019-10-01] MEDS: SODIUM CHLORIDE 0.9% FLUSH 10 ML IV ×3 (02:32→20:22)
[2019-10-01] MEDS: PIPERACILLIN-TAZO 3.375 GM/50 ML FROZ.PIGGY IV ×3 (02:49→20:21)
[2019-10-01 04:45] LABS: Add Manual Diff / Slide Review NO; Basophils Absolute Auto 0 /uL (0-100); Basophils Percent Auto 0.2 % (0-2); Eosinophils Absolute Auto 0 /uL (0-450); Hematocrit 44.7 % (41-53); Hemoglobin 14.9 g/dL (13.5-17.5); Lymphocytes Absolute Auto 600 /uL (1100-4500); Lymphocytes Percent Auto 7.9 % (25-40); Mean Corpuscular HGB Conc 33.4 % (30-36); Mean Corpuscular Hemoglobin 33.9 PG (26-34); Mean Corpuscular Volume 101.6 fL (80-100); Monocytes Absolute Auto 500 /uL (0-900); Monocytes Percent Auto 6.2 % (3-14); Neutrophils Absolute Auto 6400 /uL (1500-7000); Neutrophils Percent Auto 85.7 % (50-75); Platelet Count 79 X10^3/uL (150-400); Red Cell Distribution Width 16.2 % (11.6-14.8); White Blood Cell Count 7.4 X10^3/uL (4.5-11.0)
[2019-10-01 04:50] LABS: Alanine Aminotransferase 243 IU/L (<50); Albumin 3.8 g/dL (3.5-5.0); Albumin Globulin Ratio 1.3 (1.0-2.8); Alkaline Phosphatase 68 U/L (38-126); Aspartate Aminotransferase 289 IU/L (17-59); BUN Creatinine Ratio 26.9 (6-22); Bilirubin Total 0.6 mg/dL (0.2-1.3); Bilirubin Unconjugated 0.4 mg/dL (0.0-1.1); Blood Urea Nitrogen 54 mg/dL (9-20); Calcium 8.7 mg/dL (8.4-10.2); Carbon Dioxide 34 mmol/L (22-32); Chloride 99 mmol/L (98-107); Estimated Glomerular Filt Rate 32.3 mL/min (>60); Globulin 2.9 g/dL (1.7-4.1); Glucose 135 mg/dL (80-110); HEMOLYSIS 34 (0-50); Magnesium 2.2 mg/dL (1.6-2.3); Potassium 4.8 mmol/L (3.4-5.1); Sodium 136 mmol/L (137-145); Total Protein 6.7 g/dL (6.3-8.2)
[2019-10-01] MEDS: LEVOTHYROXINE 75 MCG TABLET PO (06:30)
[2019-10-01] MEDS: ISOSORBIDE MONONITRATE ER 60 MG PO (06:30)
[2019-10-01] MEDS: CLOPIDOGREL 75 MG TABLET PO (08:49)
[2019-10-01] MEDS: FUROSEMIDE 40 MG TABLET PO (08:49)
[2019-10-01] MEDS: HEPARIN 5,000 UNIT/ML VIAL 5000 UNIT SUBCUT (08:49)
[2019-10-01] MEDS: TAMSULOSIN 0.4 MG CAPSULE PO (08:50)
[2019-10-01] MEDS: OSELTAMIVIR 30 MG CAPSULE PO ×2 (08:50→20:22)
--- NOTE | 2019-10-01 13:02 | PM.PN.1 ---
Subjective Subjective Date Patient Seen: 10/01/19 Time Patient Seen: 13:02 Interval history: Mr. Irvin Jarrett is a 71-year-old male patient with a known history of small cell lung cancer (2012) status post chemotherapy and radiation, liver mass (2017) undergoing chemotherapy, CAD, [place] (1992, 2015), current smoker with emphysema, duodenal ulcer (2013), hypertension and hyperlipidemia who presented to the ER with shortness of breath. He had an elevated proBNP of 22 90 and an echo which confirmed an ejection fraction of 30-35%. He was also found to be influenza A positive. Patient received 1 dose of Lasix and had a small bump in his creatinine. He remained short of breath and hypoxic. His blood pressures have remained low. He has also been in bigeminy on telemetry intermittently. His blood pressure remains low normal and his blood pressure medications were held. He has remained on quite a bit of supplemental oxygen. CTA was performed which did not show evidence of a PE, there were small pleural effusions and possible vascular congestion. He continues to feel improved, only complaining of mild shortness of breath but he has not been walking as of this time. Nursing staff report that he does desaturate with minimal movement. Will re-start slow diuresis with IV lasix today while monitoring renal function. Exam Vital Signs (past 8 hours): - 10/01/19 09:18 10/01/19 10:13 10/01/19 12:42 Temperature 98.9 F 98.7 F Pulse Rate 78 76 Respiratory Rate 21 17 Blood Pressure 127/90 111/77 Pulse Oximetry 91 91 92 Fraction of Inspired Oxygen 0.6 Oxygen Delivery Method High Flow Nasal Cannula Oxygen Flow Rate 10 Narrative Exam Narrative: GENERAL APPEARANCE: well developed, frail appearing, malnourished, but no acute distress on nasal cannula. HEENT: Normocephalic, PERRLA, conjunctiva clear, EOMs intact without nystagmus, no rhinorrhea, mucous membranes are pink NECK/THYROID: neck supple, no JVD, no thyromegaly, trachea midline. LYMPH NODES: no cervical or supraclavicular lymphadenopathy. SKIN: [place], warm and dry, no visible lesions, rashes. HEART: regular rate and rhythm, S1-S2, no murmur appreciated, no rubs or gallops, brisk capillary refill, no edema LUNGS: Mild bibasilar rhonchi, without wheezing. CHEST: Symmetrical movement, no accessory muscle use. ABDOMEN: Soft, no distention, no abdominal tenderness, no guarding or peritoneal signs, no organomegaly, no flank or suprapubic tenderness, active bowel tones. BACK: Normal curvature, nontender to palpation. EXTREMITIES: moves all extremities, strength is 5/5 and symmetrica. NEUROLOGIC: AAO x3, no focal neurologic deficits, sensation intact to light touch PSYCH: Cooperative, appropriate with stable behavior Objective Labs Result Diagrams: 10/01/19 04:30 10/01/19 04:30 Labs: Laboratory Results - last 24 hr 10/01/19 10/01/19 04:30 04:30 WBC 7.4 RBC 4.40 L Hgb 14.9 Hct 44.7 MCV 101.6 H MCH 33.9 MCHC 33.4 RDW 16.2 H Plt Count 79 L Neut % (Auto) 85.7 H Lymph % (Auto) 7.9 L Richardson % (Auto) 6.2 Eos % (Auto) 0.0 L Baso % (Auto) 0.2 Neut # (Auto) 6400 Lymph # (Auto) 600 L Richardson # (Auto) 500 Eos # (Auto) 0 Baso # (Auto) 0 Sodium 136 L Potassium 4.8 Chloride 99 Carbon Dioxide 34 H BUN 54 H Creatinine 2.01 H Estimated GFR 32.3 L BUN/Creatinine Ratio 26.9 H Glucose 135 H Calcium 8.7 Magnesium 2.2 Total Bilirubin 0.6 Conjugated Bilirubin 0.0 Unconjugated Bilirubin 0.4 AST 289 H ALT 243 H Alkaline Phosphatase 68 Total Protein 6.7 Albumin 3.8 Globulin 2.9 Albumin/Globulin Ratio 1.3 Assessment & Plan Assessment & Plan narrative: Mr. Irvin Jarrett is a 71-year-old male patient with a known history of small cell lung cancer (2012) status post chemotherapy and radiation, liver mass (2017) undergoing chemotherapy, CAD, [place] (1992, 2015), current smoker with emphysema, duodenal ulcer (2013), hypertension and hyperlipidemia who presented to the ER with shortness of breath. He remains admitted for hypoxemic respiratory failure secondary to influenza a and likely pulmonary edema. 1. Sepsis secondary to influenza A, present on admission, improved -sofa score was 4 on admission, patient with evidence of end-organ damage including TYLER, respiratory failure, thrombocytopenia. -Patient presented hypoxic upon arrival to the ER with respiratory rate of 34 and SpO2 of 84%. Thrombocytopenic likely secondary to influenza, however will stop heparin sub Q today. Further with TYLER on admission. -patient is influenza A positive -patient started on Tamiflu for influenza A -he remains hypoxic on usually 8L NC -patient is also on Zosyn to cover for superimposed bacterial infection, will continue this for now. 2. Acute hypoxemic respiratory failure -likely secondary to influenza a, along with pulmonary edema secondary to acute systolic heart failure, possible superimposed bacterial pneumonia, COPD exacerbation. -given persistence of hypoxia patient underwent CTA which was negative for PE, did show possible venous thrombosis but this may have been artifact as well and clinical significance is uncertain. -will diurese today again with slightly improved renal function, restart lasix 40 mg IV daily. Goal net negative 1L daily at this time given previous rapid Cr rise with furosemide. 3. Pulmonary edema, new onset without history of heart failure, present on admission, active. -patient has history of coronary artery disease and myocardial infarction in 1992 and 2015. -Patient with progressive shortness of breath for the last month worsening tonight. History and dry nonproductive cough. -Chest x-ray consistent with pulmonary edema, elevated BNP at 2290, troponin negative at less than 0.012. -Patient received 40 mg of Lasix in the emergency department with subjective improvement in ventilation. After lasix his Cr bumped and has not been continued, but will reattempt today given persistent hypoxia. -Respiratory to consult and patient started on BiPAP per protocol, patient currently refusing, but tolerating nasal cannula. -creatinine peaked at 2.20 now slightly improved. Continue to monitor now that restarting lasix. -continue patient's home regimen of isosorbide 60 mg daily. -echocardiogram confirmed ejection fraction of 30 of 35% reflecting acute systolic heart failure -will continue low-salt diet 4. Chronic obstructive pulmonary disease, emphysema, present on admission, active -Patient is a chronic smoker smoking 2 to 2-1/2 packs per day continuing to smoke 1/2 pack per day. -In the ER the patient received albuterol and DuoNeb breathing treatments with modest improvement in respiration. -Patient also received methylprednisolone 125 mg IV, continued on methylprednisolone 40 mg every 8 hours, and will stop this today and continue with prednisone 40 mg daily. Steroids may be contributing to pulmonary edema. -Respiratory therapy to consult evaluate and treat. -continue albuterol and DuoNebs. 5. Chronic kidney disease stage 3, possible acute kidney injury on chronic renal disease, present on admission, active -creatinine of 1.62 on admission labs. Last available creatinine was 1.2 in June of 2018. Peaked yesterday to 2.2 and improved slightly to 2.1 today. - received Lasix 40 mg IV in the emergency department with moderate diuresis. -diurese today as noted above -Will renal dose medications and avoid renal toxic agents.. -Will follow renal function closely. 6. Essential hypertension, chronic, present on admission, active -Patient with elevated blood pressure 184/120 on admission -held home BP medications (metoprolol and losartan) for low BP. Remains normotensive today. 7. Small cell carcinoma, in remission, stable. -The patient underwent chemotherapy and radiation therapy for small cell carcinoma diagnosed in 2012. -Patient has since developed a liver mass and is undergoing chemotherapy every 3 weeks under the care of Dr. Murray. 8. Dyslipidemia, chronic, presumed stable -continue patient's home regimen of atorvastatin 20 mg daily at bedtime 9. Acute systolic heart failure -diuresis as noted above, -patient is currently on an Arb as well as a beta-olivia at home, these will be resumed when his blood pressure is able to tolerate these medications with diuresis. Anticipate discharge home when the patient is no longer hypoxic. However given his underlying lung cancer, COPD, and now acute systolic heart failure the patient may require home O2 at discharge vs SNF placement. He is listed for the regular floor.
[2019-10-01] MEDS: TIOTROPIUM BROMIDE 18 MCG INHALER INH (13:36)
[2019-10-01] MEDS: FUROSEMIDE 40 MG/4 ML VIAL IV (13:38)
--- NOTE | 2019-10-01 14:31 | CM.DPC ---
DCP Cont Discussed patient during team rounds. He is continuing to decreased oxygen saturations during any activity, and is requiring oxygen. Patient could potentially need home oxygen at discharge. He does not yet have P.T. orders, due to his being medically unstable. P: DCP to continue to follow closely. Will see if patient can get P.T. once he is medically cleared, to evaluate for home. Kirsty Moreland RN/Jigsaw Operator
[2019-10-01] MEDS: DOCUSATE 100 MG CAPSULE PO (20:21)
[2019-10-01] MEDS: ATORVASTATIN 20 MG TABLET PO (20:21)
[2019-10-02] VITALS (10 sets, daily range): BP systolic 106–135; BP diastolic 68–85; PULSE 79–98; RESP 14–24; TEMP 36.3–37.8; O2SAT 90–95
[2019-10-02] MEDS: SODIUM CHLORIDE 0.9% FLUSH 10 ML IV ×3 (03:19→21:24)
[2019-10-02] MEDS: PIPERACILLIN-TAZO 3.375 GM/50 ML FROZ.PIGGY IV ×3 (03:19→19:16)
[2019-10-02 05:02] LABS: Add Manual Diff / Slide Review NO; Basophils Absolute Auto 0 /uL (0-100); Basophils Percent Auto 0.1 % (0-2); Eosinophils Absolute Auto 0 /uL (0-450); Hematocrit 50.7 % (41-53); Lymphocytes Absolute Auto 700 /uL (1100-4500); Mean Corpuscular HGB Conc 33.5 % (30-36); Mean Corpuscular Hemoglobin 33.9 PG (26-34); Mean Corpuscular Volume 101.3 fL (80-100); Monocytes Absolute Auto 600 /uL (0-900); Neutrophils Absolute Auto 6600 /uL (1500-7000); Neutrophils Percent Auto 82.9 % (50-75); Platelet Count 82 X10^3/uL (150-400); Red Cell Distribution Width 16.1 % (11.6-14.8)
[2019-10-02 05:07] LABS: Alanine Aminotransferase 306 IU/L (<50); Albumin 4.2 g/dL (3.5-5.0); Albumin Globulin Ratio 1.3 (1.0-2.8); Alkaline Phosphatase 80 U/L (38-126); Aspartate Aminotransferase 305 IU/L (17-59); Bilirubin Total 0.9 mg/dL (0.2-1.3); Bilirubin Unconjugated 0.7 mg/dL (0.0-1.1); Blood Urea Nitrogen 54 mg/dL (9-20); Calcium 9.3 mg/dL (8.4-10.2); Chloride 93 mmol/L (98-107); Estimated Glomerular Filt Rate 28.3 mL/min (>60); Globulin 3.3 g/dL (1.7-4.1); Glucose 113 mg/dL (80-110); Magnesium 2.1 mg/dL (1.6-2.3); Potassium 4.7 mmol/L (3.4-5.1); Sodium 137 mmol/L (137-145); Total Protein 7.5 g/dL (6.3-8.2)
[2019-10-02 05:13] LABS: HEMOLYSIS 22 (0-50)
[2019-10-02 05:28] LABS: Carbon Dioxide 35 mmol/L (22-32)
[2019-10-02] MEDS: LEVOTHYROXINE 75 MCG TABLET PO (06:24)
[2019-10-02] MEDS: ISOSORBIDE MONONITRATE ER 60 MG PO (06:25)
--- NOTE | 2019-10-02 07:47 | DI.US.S_ITS ---
PROCEDURE: US ABDOMEN LIMITED INDICATIONS: RISING LFTS TECHNIQUE: Real-time focused scanning was performed of the abdomen, with image documentation. COMPARISON: [facility], CT, CT ABDOMEN PELVIS WO CON, 07/17/2018, 12:30. [facility], CT, CT ANGIO CHEST PE PROTOCOL, 09/30/2019, 12:39. FINDINGS: The liver demonstrates normal size and overall normal echotexture. Within the posterior aspect of the right lobe, there is a solid appearing hypoechoic mass that measures 2.8 x 2.4 x 3.4 cm. No abnormal vascularity can be seen. No findings of gallstones or sludge are seen. The gallbladder wall is not thickened, measuring 3 mm or less. Mild gallbladder wall adenomyomatosis can be seen. No specific pericholecystic fluid is seen. The sonographic Ward sign is negative. There is no biliary dilatation, the common bile duct measures 6 mm. The pancreas is not well-seen. The right kidney demonstrates normal size and demonstrates multiple simple cysts, the largest measuring up to 4.5 cm. IMPRESSION: There is an apparent liver mass seen that measures up to 3.4 cm. Dedicated followup with a liver protocol CT (without and with contrast) or liver protocol MRI (without and with contrast without the recommended (assuming that there is no contraindication). Right renal cysts incidentally noted. Dictated by: Kostas Osorio M.D. on 10/02/2019 at 9:01 Approved by: Kostas Osorio M.D. on 10/02/2019 at 9:04
[2019-10-02] MEDS: TIOTROPIUM BROMIDE 18 MCG INHALER INH (08:03)
[2019-10-02] MEDS: ALBUTEROL/IPRATROPIUM 3 ML AMPUL INH (08:09)
[2019-10-02] MEDS: CLOPIDOGREL 75 MG TABLET PO (09:58)
[2019-10-02] MEDS: predniSONE 20 MG TABLET 40 MG PO (09:58)
[2019-10-02] MEDS: TAMSULOSIN 0.4 MG CAPSULE PO (09:59)
[2019-10-02] MEDS: FUROSEMIDE 20 MG/2 ML VIAL 40 MG IV ×2 (09:59→21:23)
--- NOTE | 2019-10-02 12:00 | P.PN_ITS ---
Subjective Subjective Date Patient Seen: 10/02/19 Time Patient Seen: 08:15 Interval history: Mr. Irvin Jarrett is a 71-year-old male patient with a known history of small cell lung cancer (2012) status post chemotherapy and radiation, liver mass (2017) undergoing chemotherapy, CAD, [place] (1992, 2015), current smoker with emphysema, duodenal ulcer (2013), hypertension and hyperlipidemia who presented to the ER with shortness of breath. He had an elevated proBNP of 22 90 and an echo which confirmed an ejection fraction of 30-35%. He was also found to be influenza A positive. Patient received 1 dose initially of Lasix and had a small bump in his creatinine. He remained short of breath and hypoxic. His blood pressures have remained low. He has also been in bigeminy on telemetry intermittently. His blood pressure remains low normal and his blood pressure medications were held. He has remained on quite a bit of supplemental oxygen. CTA was performed which did not show evidence of a PE, there were small pleural effusions and possible vascular congestion. He continues to feel improved, only complaining of mild shortness of breath but he has not been [place] as of this time. Nursing staff report that he does desaturate with minimal movement. Restarted diuresis yesterday, with minimal improvement in oxygenation. Will continue today with diuresis despite slight rise in creatinine, but if he does not improve may need to consider transfer to center with cardiology, nephrology support. Exam Vital Signs (past 8 hours): - 10/02/19 07:45 10/02/19 08:12 Temperature 97.8 F Pulse Rate 79 80 Respiratory Rate 20 22 Blood Pressure 122/85 Pulse Oximetry 90 L 91 Fraction of Inspired Oxygen 0.6 Oxygen Delivery Method High Flow Nasal Cannula Oxygen Flow Rate 11 Narrative Exam Narrative: GENERAL APPEARANCE: well developed, frail appearing, malnourished, but no acute distress on nasal cannula. HEENT: Normocephalic, PERRLA, conjunctiva clear, EOMs intact without nystagmus, no rhinorrhea, mucous membranes are pink NECK/THYROID: neck supple, no JVD, no thyromegaly, trachea midline. LYMPH NODES: no cervical or supraclavicular lymphadenopathy. SKIN: [place], warm and dry, no visible lesions, rashes. HEART: regular rate and rhythm, S1-S2, no murmur appreciated, no rubs or gallops, brisk capillary refill, no edema LUNGS: Mild bibasilar rhonchi, without wheezing. CHEST: Symmetrical movement, no accessory muscle use. ABDOMEN: Soft, no distention, no abdominal tenderness, no guarding or perit grullon signs, no organomegaly, no flank or suprapubic tenderness, active bowel tones. BACK: Normal curvature, nontender to palpation. EXTREMITIES: moves all extremities, strength is 5/5 and symmetrica. NEUROLOGIC: AAO x3, no focal neurologic deficits, sensation intact to light touch PSYCH: Cooperative, appropriate with stable behavior Objective Labs Result Diagrams: 10/02/19 04:40 10/02/19 04:40 Labs: Laboratory Results - last 24 hr 10/02/19 10/02/19 04:40 04:40 WBC 8.0 RBC 5.00 Hgb 17.0 Hct 50.7 MCV 101.3 H MCH 33.9 MCHC 33.5 RDW 16.1 H Plt Count 82 L Neut % (Auto) 82.9 H Lymph % (Auto) 9.[address] [facility] % (Auto) 8.0 Eos % (Auto) 0.0 L Baso % (Auto) 0.1 Neut # (Auto) 6600 Lymph # (Auto) [address] [facility] # (Auto) 600 Eos # (Auto) 0 Baso # (Auto) 0 Sodium 137 Potassium 4.7 Chloride 93 L Carbon Dioxide 35 H BUN 54 H Creatinine 2.25 H Estimated GFR 28.3 L BUN/Creatinine Ratio 24.0 H Glucose 113 H Calcium 9.3 Magnesium 2.1 Total Bilirubin 0.9 Conjugated Bilirubin 0.0 Unconjugated Bilirubin 0.7 AST 305 H ALT 306 H Alkaline Phosphatase 80 Total Protein 7.5 Albumin 4.2 Globulin 3.3 Albumin/Globulin Ratio 1.3 Assessment & Plan Assessment & Plan narrative: Mr. Irvin Jarrett is a 71-year-old male patient with a known history of small cell lung cancer (2012) status post chemotherapy and radiation, liver mass (2017) undergoing chemotherapy, CAD, [place] (1992, 2015), current smoker with emphysema, duodenal ulcer (2013), hypertension and hyperlipidemia who presented to the ER with shortness of breath. He remains admitted for hypoxemic respiratory failure secondary to influenza a and likely pulmonary edema. 1. Sepsis secondary to influenza A, present on admission, improved -sofa score was 4 on admission, patient with evidence of end-organ damage including TYLER, respiratory failure, thrombocytopenia. -Patient presented hypoxic upon arrival to the ER with respiratory rate of 34 and SpO2 of 84%. Thrombocytopenic likely secondary to influenza, however stopped heparin subQ. Consider restarting if Plt count begins to rise consistently. -patient is influenza A positive -patient started on Tamiflu for influenza A -he remains hypoxic on HFNC. -patient is also on Zosyn to cover for superimposed bacterial infection.. 2. Acute hypoxemic respiratory failure -likely secondary to influenza a, along with pulmonary edema secondary to acute systolic heart failure, possible superimposed bacterial pneumonia, COPD exacerbation. -given persistence of hypoxia patient underwent CTA which was negative for PE, did show possible venous thrombosis but this may have been artifact as well and clinical significance is uncertain. -will continue to diurese today with lasix 40 mg IV BID. Goal net negative 1L daily given previous rise in Cr. Cr did jump slightly today after yesterday's dose but has been consistently about 2-2.2 and he needs more aggressive diuresis. If there is no improvement despite this or kidney function declines, consider transfer to center with cardiology and nephrology consulations available. This possibility was discussed with family and they request [place] if available. 3. Pulmonary edema, new onset without history of heart failure, present on admission, active. -patient has history of coronary artery disease and myocardial infarction in and 2015. -Patient with progressive shortness of breath for the last month worsening tonight. History and dry nonproductive cough. -Chest x-ray consistent with pulmonary edema, elevated BNP at 2290, troponin negative at less than 0.012. -Patient received 40 mg of Lasix in the emergency department with subjective improvement in ventilation. After lasix his Cr bumped and has not been continued, but yesterday restarted with another rise in his Cr, however will need to continue diuresis today to help. -Respiratory to consult and patient started on BiPAP per protocol, patient currently refusing, but tolerating nasal cannula. -continue patient's home regimen of isosorbide 60 mg daily. -echocardiogram confirmed ejection fraction of 30 of 35% reflecting acute systolic heart failure -will continue low-salt diet 4. Chronic obstructive pulmonary disease, emphysema, present on admission, acti ve -Patient is a chronic smoker smoking 2 to 2-1/2 packs per day continuing to smoke 1/2 pack per day. -In the ER the patient received albuterol and DuoNeb breathing treatments with modest improvement in respiration. -Patient also received methylprednisolone 125 mg IV, continued on methylprednisolone 40 mg every 8 hours initlally and is now on prednisone 40 mg daily as steroids may be contributing to pulmonary edema. -Respiratory therapy to consult evaluate and treat. -continue albuterol and DuoNebs. 5. Chronic kidney disease stage 3, possible acute kidney injury on chronic renal disease, present on admission, active -creatinine of 1.62 on admission labs. Last available creatinine was 1.2 in June of 2018. Peaked yesterday to 2.2 and improved slightly to 2.1 today. - received Lasix 40 mg IV in the emergency department with moderate diuresis. -diurese today as noted above -Will renal dose medications and avoid renal toxic agents.. -Will follow renal function closely. 6. Essential hypertension, chronic, present on admission, active -Patient with elevated blood pressure 184/120 on admission -held home BP medications (metoprolol and losartan) for low BP. Remains normotensive today. His bigeminy that was noted during this admission has improved since holding metoprolol. 7. Small cell carcinoma, in remission, stable. -The patient underwent chemotherapy and radiation therapy for small cell carcinoma diagnosed in 2012. -Patient has since developed a liver mass and is undergoing chemotherapy every 3 weeks under the care of Dr. Murray. 8. Dyslipidemia, chronic, presumed stable -continue patient's home regimen of atorvastatin 20 mg daily at bedtime 9. Acute systolic heart failure -diuresis as noted above, -patient is currently on an Arb as well as a beta-olivia at home, these will be resumed when his blood pressure is able to tolerate these medications with diuresis. Anticipate discharge home when the patient is no longer hypoxic. However given his underlying lung cancer, COPD, and now acute systolic heart failure the patient may require home O2 at discharge vs SNF placement. He may also require transfer before then if he continues to be hypoxic. He is listed for the regular floor.
--- NOTE | 2019-10-02 13:40 | RT ---
Pt took Spiriva and is asking for neb TX. [place] only neb on SEP. Asked Dr. Durán to change it 1.25 hours ago. He has not changed it yet. I added the Albuterol PRN neb with Physicjer's verbal order.
[2019-10-02] MEDS: ALBUTEROL 2.5 MG/3 ML NEB (ADULT) INH (13:49)
[2019-10-02] MEDS: ATORVASTATIN 20 MG TABLET PO (21:23)
[2019-10-03] VITALS (8 sets, daily range): BP systolic 103–124; BP diastolic 72–90; PULSE 80–92; RESP 14–23; TEMP 36.5–36.8; O2SAT 85–94
--- NOTE | 2019-10-03 00:50 | PC.NURSE ---
Addendum entered by Manuel Lowery R.N. 10/03/19 07:05: 0700: Joel ORTIZ notified that O2 sats continue to be 83-85%. Addendum entered by Manuel Lowery R.N. 10/03/19 06:35: 0610: Lasix 20mg given IV as ordered by Joel ORTIZ Addendum entered by Manuel Lowery R.N. 10/03/19 06:16: 0430: O2 sats 87-90. RT notified and here to assess pt. 0500: Neb in progress. 0550: DIANA Fonseca notified that O2 sats 87-90% persist. Original Note: Supervisor Customer Complaint Service Note: 0000: Awake, resting in bed. Vital signs stable. IV in place in lt wrist. SCDs on. Remains on O2 12L via HFNC. Assisted up to use urinal: steady on his feet with walker.
[2019-10-03] MEDS: PIPERACILLIN-TAZO 3.375 GM/50 ML FROZ.PIGGY IV ×2 (03:21→11:56)
[2019-10-03] MEDS: TIOTROPIUM BROMIDE 18 MCG INHALER INH (05:04)
[2019-10-03] MEDS: ALBUTEROL 2.5 MG/3 ML NEB (ADULT) INH (05:04)
[2019-10-03 05:16] LABS: Add Manual Diff / Slide Review NO; Basophils Absolute Auto 0 /uL (0-100); Basophils Percent Auto 0.1 % (0-2); Eosinophils Absolute Auto 0 /uL (0-450); Eosinophils Percent Auto 0.1 % (2-4); Hematocrit 49.4 % (41-53); Hemoglobin 16.9 g/dL (13.5-17.5); Lymphocytes Absolute Auto 700 /uL (1100-4500); Lymphocytes Percent Auto 10.4 % (25-40); Mean Corpuscular HGB Conc 34.1 % (30-36); Mean Corpuscular Hemoglobin 34.6 PG (26-34); Mean Corpuscular Volume 101.3 fL (80-100); Monocytes Absolute Auto 700 /uL (0-900); Monocytes Percent Auto 10.8 % (3-14); Neutrophils Absolute Auto 5100 /uL (1500-7000); Neutrophils Percent Auto 78.6 % (50-75); Platelet Count 75 X10^3/uL (150-400); Red Blood Cell Count 4.88 X10^6/uL (4.5-5.9); Red Cell Distribution Width 15.6 % (11.6-14.8); White Blood Cell Count 6.5 X10^3/uL (4.5-11.0)
[2019-10-03 05:24] LABS: Alanine Aminotransferase 253 IU/L (<50); Albumin 4.3 g/dL (3.5-5.0); Albumin Globulin Ratio 1.3 (1.0-2.8); Alkaline Phosphatase 85 U/L (38-126); Aspartate Aminotransferase 159 IU/L (17-59); BUN Creatinine Ratio 23.5 (6-22); Bilirubin Total 1.1 mg/dL (0.2-1.3); Blood Urea Nitrogen 54 mg/dL (9-20); Calcium 9.4 mg/dL (8.4-10.2); Chloride 94 mmol/L (98-107); Estimated Glomerular Filt Rate 27.6 mL/min (>60); Globulin 3.3 g/dL (1.7-4.1); Glucose 118 mg/dL (80-110); HEMOLYSIS < 15 (0-50); Magnesium 2.3 mg/dL (1.6-2.3); Potassium 3.9 mmol/L (3.4-5.1); Sodium 137 mmol/L (137-145); Total Protein 7.6 g/dL (6.3-8.2)
[2019-10-03 05:30] LABS: Carbon Dioxide 38 mmol/L (22-32)
[2019-10-03] MEDS: FUROSEMIDE 20 MG/2 ML VIAL IV (06:07)
[2019-10-03] MEDS: LEVOTHYROXINE 75 MCG TABLET PO (06:08)
[2019-10-03] MEDS: ISOSORBIDE MONONITRATE ER 60 MG PO (06:11)
[2019-10-03] MEDS: CLOPIDOGREL 75 MG TABLET PO (08:39)
[2019-10-03] MEDS: TAMSULOSIN 0.4 MG CAPSULE PO (08:39)
[2019-10-03] MEDS: FUROSEMIDE 20 MG/2 ML VIAL 40 MG IV (08:39)
[2019-10-03] MEDS: SODIUM CHLORIDE 0.9% FLUSH 10 ML IV ×2 (08:39→11:56)
[2019-10-03] MEDS: predniSONE 20 MG TABLET 40 MG PO (08:39)
--- NOTE | 2019-10-03 09:15 | DI.RAD.S_ITS ---
PROCEDURE: XR CHEST 1V INDICATIONS: hypoxia TECHNIQUE: One view of the chest was acquired. COMPARISON: [facility], CR, XR CHEST 1V, 09/27/2019, 2:35. FINDINGS: Surgical changes and devices: None. Lungs and pleura: There is elevation of right hemidiaphragm unchanged from prior study. Advanced emphysematous changes also seen. Scattered scarring/atelectasis in bilateral lower lung [place] are seen. Increased interstitial lung markings are noted. No definite focal infiltrate. No pleural effusions or pneumothorax. Mediastinum: Mediastinal contours appear normal. Heart size is normal. Bones and chest wall: No suspicious bony lesions. Overlying soft tissues appear unremarkable. IMPRESSION: COPD and suggestion of chronic interstitial lung parenchymal disease. Overall lung aeration has improved since previous study. No definite focal infiltrate. No gross pneumothorax. Dictated by: Sravan Morataya M.D. on 10/03/2019 at 10:19 Approved by: Sravan Morataya M.D. on 10/03/2019 at 10:20
[2019-10-03 09:26] LABS: HCO3 ABG 35 mmol/L (22-26); PCO2 ABG 44.9 mmHg (35-45); PO2 ABG 52 mmHg (80-100)
[2019-10-03 09:27] LABS: Oxygen Saturation ABG 89 % (95-100); TCO2 ABG 37 mmol/L (21-31)
--- NOTE | 2019-10-03 12:13 | PC.NURSE ---
Addendum entered by Vivek Jain R.N. 10/03/19 15:26: updated of pt transfer time 1600. Addendum entered by Vivek Jain R.N. 10/03/19 15:25: Report called to Ruby Johnson RN at [facility]. Original Note: Rec'd pt in bed resting eyes open. He is significantly [place] and without his hearing aids in the hospital. He is able to answer questions with clear, occasionally mumbled, speech. He denies respiratory distress. He states he is somewhat short of breath but that it's consistent with previous days. His SPO2 on 13L HFNC is ranging from 83-89%. His RR is 18-22 at rest. His lungs are mostly diminished with occasional faint expiratory wheezes scattered throughout. Spoke with Dr. Kirk and rec'd order for ABG and Bipap. Pt has been resistant to using bipap due to discomfort of the mask. After speaking with Dr. Kirk and careful explanation, he is agreeable to using bipap. Pt able to tolerate bipap for about 2 hours before asking to have it removed. Spoke with Dr. Kirk requesting need for f/u ABG. Dr. Kirk states no ABG needed and orders received to place pt on heated high flow cannula. RT notified and set pt up on heated high flow NC 50L 75% FIO2 ~1200. SPO2 88-92%. Dr. Kirk on rounds at this time. Updates pt/ re plan of care- Dr. Kirk is recommending pt be transferred to another hospital with pulmonology services. Pt/ agreeable to plan. Coordinator aware.
--- NOTE | 2019-10-03 12:33 | P.DS_ITS ---
History of Present Illness History of Present Illness Date Patient Seen: 10/03/19 Chief complaint: lung cancer/pneumonia 6 weeks/getting worse Narrative: Mr. Irvin Jarrett is a 71-year-old male patient with a known history of small cell lung cancer (2012) status post chemotherapy and radiation, liver mass (2017) undergoing chemotherapy, CAD, [place] (1992, 2015), current smoker with emphysema, duodenal ulcer (2013), hypertension and hyperlipidemia who presents to the ER with his forshortness of breath. The patient has had a chronic cough related to his lung cancer that has worsened over the last 4-6 weeks. The patient is currently undergoing pembrolizumab (keytruda) every 3 weeks with next dose due tomorrow. He follows with his oncologist Dr. Newton who has ordered 2 courses of antibiotics including azithromycin on 08/16/2019 and amoxicillin clavulanate on 09/06/2019 for presumed pneumonia during chemo treatment. the patient states he was beginning to feel somewhat better but became markedly worse tonight stating it feels like the pneumonia he had before. the patient's reports decreased appetite and weight gain. The patient continues to smoke 1/2 pack per day. The patient reports no fevers or chills, headaches or dizziness. His describes having cold symptoms. Denies complaints of chest pain and has shortness of breath and cough as above. Reports no complaints abdominal pain, heartburn or nausea. Reports regularly passing formed stools an d has noted blood in his urine but none is appreciated in the urine at bedside. Upon arrival to the ER the patient has a blood pressure of 90 7.3, heart rate of 100, blood pressure 184/120, respirations of 32 saturating 84% on room air. Patient had responded well to oxygen therapy with oxygen saturation up to 94% on nasal cannula. Chest x-ray demonstrates elevated right hemidiaphragm with va scular prominence consistent with pulmonary edema. Twelve lead EKG: Sinus rhythm ventricular rate 96, right bundle branch block, left axis shift, septal infarct, no ST or T-wave changes. On laboratory analysis his white count of 4.8, hemoglobin of 15.8 and hematocrit of 46.3 and platelets of 103. On coagulation he has a PT of 13.1, INR 1.1 and PTT 37. On chemistry C has electrolytes normal limits and has a BUN of 21 and creatinine of 1.62. His nonfasting glucose is 118. His magnesium is 2.0. He has lactic acid is 0.9 and a procalcitonin of less than 0.05. He has an elevated total CK at 517 with CK- MB of 8.35 with an index of 1.6. His troponin is less than 0.012 and his proBNP is elevated at 2290. The patient is admitted to the medicine service with acute hypoxic respiratory failure. Discharge Providers Provider Date of admission: 09/27/19 05:20 Discharge Date: 10/03/19 Consults: 09/27/19 05:04 Consult to Discharge Planning Routine Comment: Consult to Respiratory Therapy Evaluate & Treat Comment: Lung cancer, Pulmonary edema, emphysema Physician Instructions: Evaluate and treat Discharge provider: Nena Kirk MD Summary Hospital Course Discharge Diagnosis: 1. Acute hypoxic respiratory failure 2. Influenza a positive 3. Acute systolic heart failure 4 COPD, acute exacerbation 5. 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 Hyperlipidemia 8. Hypertension 9. Acute kidney injury, secondary to prerenal azotemia Hospital Course: Patient is a 79-year-old male who was admitted to the hospital for acute hypoxic respiratory failure. Patient was found to be influenza A positive. He was treated with a five-day course of Tamiflu. Patient was treated with IV Zosyn for bacterial superinfection. In addition he was placed on steroids for COPD. The patient underwent a cardiac echo to evaluate LV function. Cardiac echo revealed Left ventricular size is at the upper limits of normal. Left ventricular systolic function is moderately reduced. Left ventricular ejection fraction is estimated to be 35%. There is mild global hypokinesis with more pronounced hypokinesis along the inferolateral wall. Global longitudinal peak systolic strain average is reduced at -11.2%. There is probable grade I LV diasotlic dysfunction.The right ventricle is normal in size, thickness and function. Right ventricular systolic function is mildly reduced. Pulmonary artery pressures cannot be estimated because of the lack of a measurable TR jet velocity but the IVC suggests a CVP of around 3 mmHg. Both atria are normal in size. There is no significant valvular heart disease. The aortic root is normal size. Patient had a CT angio which was negative for pulmonary embolus. It did show pulmonary edema. Patient was diuresed given his low ejection fraction and hypokinesis. Despite aggressive diuresis, the patient continued to be markedly hypoxic. He required 13 L of oxygen, patient was placed on BiPAP which she did not tolerate. He was then switched to a heated high-flow at FiO2 of 70% to maintain an O2 sat of 90-93%. As the patient had been in the hospital for 6 days and appear to be making no significant progress with his hypoxemia arrangements were made for him to be transferred to [facility] for higher level of care. Patient is under the care of Dr. Ward or his oncologist. He will see and evaluate the patient when he arrives at [facility]. The patient will have a Covid-19 serology sent given persistent hypoxemia. Patient is transferred to [facility] for pulmonary consultation. Exam Vital Signs (past 8 hours): - 10/03/19 05:05 10/03/19 08:00 10/03/19 09:04 Temperature 98.1 F Pulse Rate 87 Respiratory Rate 20 Blood Pressure 103/72 103/72 Pulse Oximetry 88 L 85 L 10/03/19 09:08 10/03/19 11:14 Temperature 97.7 F Pulse Rate 92 H 91 H Respiratory Rate 22 23 Blood Pressure 103/76 Pulse Oximetry 90 L 92 Fraction of Inspired Oxygen 60 Oxygen Delivery Method BiPAP Oxygen Flow Rate 13 Narrative Exam Narrative: Pleasant gentleman resting comfortably in no distress Lungs: Decreased breath sounds with occasional scattered rhonchi bilaterally Cardiac exam: Regular rate and rhythm normal S1-S2 Abdomen: Soft nontender nondistended no appreciable hepatosplenomegaly Extremities: No edema Objective Labs Result Diagrams: 10/03/19 04:55 10/03/19 04:55 Labs: Laboratory Results - last 24 hr 10/03/19 10/03/19 10/03/19 04:55 04:55 08:40 WBC 6.5 RBC 4.88 Hgb 16.9 Hct 49.4 MCV 101.3 H MCH 34.6 H MCHC 34.1 RDW 15.6 H Plt Count 75 L Neut % (Auto) 78.6 H Lymph % (Auto) 10.4 L [place] % (Auto) 10.8 Eos % (Auto) 0.1 L Baso % (Auto) 0.1 Neut # (Auto) 5100 Lymph # (Auto) 700 L [place] # (Auto) 700 Eos # (Auto) 0 Baso # (Auto) 0 ABG pH 7.50 H ABG pCO2 44.9 ABG pO2 52 L ABG HCO3 35 H ABG Total CO2 37 H ABG O2 Saturation 89 L ABG Base Excess 12.0 H FiO2 0.80 Sodium 137 Potassium 3.9 Chloride 94 L Carbon Dioxide 38 H BUN 54 H Creatinine 2.30 H Estimated GFR 27.6 L BUN/Creatinine Ratio 23.5 H Glucose 118 H Calcium 9.4 Magnesium 2.3 Total Bilirubin 1.1 Conjugated Bilirubin 0.0 Unconjugated Bilirubin 1.0 AST 159 H ALT 253 H Alkaline Phosphatase 85 Total Protein 7.6 Albumin 4.3 Globulin 3.3 Albumin/Globulin Ratio 1.3 Discharge Plan Discharge Plan Patient Disposition: Xfer [facility] Discharge orders & Medications Prescriptions: No Action acetaminophen 325 mg Tablet 650 mg PO Q4HR PRN (Reason: As Needed For Fever/Mild Pain) Qty: 60 RF: 0 losartan 50 mg Tablet 50 mg PO DAILY RF: 0 atorvastatin 20 mg Tablet 20 mg PO BEDTIME RF: 0 clopidogrel [Plavix] 75 mg Tablet 75 mg PO DAILY RF: 0 isosorbide mononitrate 60 mg Tablet Extended Release 24 Hr 60 mg PO DAILY RF: 0 tamsulosin 0.4 mg Capsule 0.4 mg PO DAILY RF: 0 metoprolol tartrate 50 mg Tablet 50 mg PO BID RF: 0 Spiriva with HandiHaler 18 mcg Capsule, W/Inhalation Device 1 cap INHALATION DAILY RF: 0 Diet/Activity/Treatments Diet: Low-fat and Low-cholesterol Liquid consistency: Normal/Thin Food texture: Regular Activity: as tolerated Oxygen: BIpap titrate to keep sat above 88%
--- NOTE | 2019-10-03 17:36 | PC.NURSE ---
Patient transferred by [facility] to [facility] on BIPAP. Report was given to Ruby Johnson RN by [facility] nurse [place]. was given patient's new location and a number to call for updates. took home belongings. Says patient lost a hearing aid. I directed her to speak to the coordinator about that.
[2019-10-12 22:58] LABS: COVID19 Sendout Not Detected (Not Detected)
== END 2019-10-03 17:20 | disposition short-term general hospital (02) | DRG 871 ==
LOC: ED 03:53 → AC 05:22 → ICU 05:23
PROVIDERS: Internal Medicine; Admitting Provider Nurse Practitioner Adult Health; Emergency Provider Emergency Medicine; Referring Provider Emergency Medicine; Visit Provider Nurse Practitioner Adult Health
DX: A41.89 Other specified sepsis (principal); I50.21 Acute systolic (congestive) heart failure; J96.01 Acute respiratory failure with hypoxia; J15.9 Unspecified bacterial pneumonia; I13.0 Hypertensive heart and chronic kidney disease with heart failure and stage 1 through stage 4 chronic kidney disease, or unspecified chronic kidney disease; N17.9 Acute kidney failure, unspecified; C78.7 Secondary malignant neoplasm of liver and intrahepatic bile duct; J44.1 Chronic obstructive pulmonary disease with (acute) exacerbation; R65.20 Severe sepsis without septic shock; N18.3 Chronic kidney disease, stage 3 (moderate); D69.59 Other secondary thrombocytopenia; Z85.118 Personal history of other malignant neoplasm of bronchus and lung; J10.1 Influenza due to other identified influenza virus with other respiratory manifestations; I25.10 Atherosclerotic heart disease of native coronary artery without angina pectoris; F17.210 Nicotine dependence, cigarettes, uncomplicated; E78.5 Hyperlipidemia, unspecified; R79.89 Other specified abnormal findings of blood chemistry; Z03.818 Encounter for observation for suspected exposure to other biological agents ruled out
CPT/HCPCS: 36415; 36600; 71045; 71275; 76705; 80048; 80076; 81003; 81015; 82550; 82553; 82805; 83605; 83735; 83880; 84145; 84439; 84443; 84484; 85025; 85379; 85610; 85730; 87040; 87633; 87635; 87797; 93005; 93010; 93306; 94640; 94660; 94760; 94762; 96374; 96375; 99285; 99291; 99292; J1644; J1940; J2543; J2920; J2930; J7613; Q9967

== ENCOUNTER → 2020-10-23 14:56 | Outpatient (ROUT) | payer MEDICARE, OTHER, SELFPAY ==
[2019-09-27 06:05] VITALS: BMI 28.2
[2019-10-03 09:04] VITALS: PULSE 92; RESP 22; O2SAT 90
[2020-10-23 16:20] LABS: Alanine Aminotransferase 22 IU/L (<50); Albumin 3.6 g/dL (3.5-5.0); Albumin Globulin Ratio 1.4 (1.0-2.8); Alkaline Phosphatase 79 U/L (38-126); Aspartate Aminotransferase 26 IU/L (17-59); BUN Creatinine Ratio 17.3 (6-22); Bilirubin Total 0.3 mg/dL (0.2-1.3); Blood Urea Nitrogen 22 mg/dL (9-20); Calcium 9.2 mg/dL (8.4-10.2); Carbon Dioxide 31 mmol/L (22-32); Chloride 106 mmol/L (98-107); Cholesterol 125 mg/dL (140-199); Estimated Glomerular Filt Rate 54.7 mL/min (>60); Globulin 2.6 g/dL (1.7-4.1); Glucose 105 mg/dL (80-110); HDL Cholesterol 40 mg/dL (40-60); HEMOLYSIS < 15 (0-50); LDL Cholesterol Calculated 63 mg/dL (<100); Potassium 4.2 mmol/L (3.4-5.1); Sodium 141 mmol/L (137-145); Total Protein 6.2 g/dL (6.3-8.2); Triglycerides 108 mg/dL (35-150)
== END ==
PROVIDERS: Visit Provider Internal Medicine
DX: E78.5 Hyperlipidemia, unspecified (principal); I10 Essential (primary) hypertension
CPT/HCPCS: 80053; 80061